=== PATIENT | female | born 1970 | race Caucasian/White ===

== ENCOUNTER 2019-11-06 11:30 | Inpatient (IN) | payer MEDICARE, MEDICAID, SELFPAY ==
[2019-11-06] VITALS (9 sets, daily range): BP systolic 103–140; BP diastolic 46–87; PULSE 60–94; RESP 11–18; TEMP 36.2–36.6; O2SAT 94–100; BMI 24.4
--- NOTE | ~2019-11-06 | CT_ITS ---
EXAMINATION: CT brain wo con DATE: 11/06/2019 12:22 INDICATION: Syncope. TECHNIQUE: Computed tomography (CT) of the head was performed without intravenous contrast. The mA wa s adjusted according to patient size. Iterative reconstruction technique was employed. The dose-lengt h product was 605.33 mGy-cm. COMPARISON: None FINDINGS: There is a large distribution of encephalomalacia in right temporal lobe and right insula. There is asymmetric volume loss of right frontal lobe. No pleural effusion or pneumothorax. There is ex vacuo dilatation of right lateral ventricle. The paranasal sinuses are clear. The orbits are michael l. The mastoid air cells are normal. There are changes of right-sided craniotomy. IMPRESSION: 1. Chronic encephalomalacia involving right temporal lobe and right insula. Reviewed, dictated and finalized at location A.
--- NOTE | ~2019-11-06 | XR_ITS ---
EXAMINATION: XR wrist LT min 3V DATE: 11/06/2019 12:42 INDICATION: Left wrist pain. Fall. TECHNIQUE: 4 views of left wrist were obtained. COMPARISON: None. FINDINGS: Bone alignment is normal. No fracture. Joint spaces are well maintained. IMPRESSION: 1. Normal left wrist. Reviewed, dictated and finalized at location A. IMPRESSION: 1. Normal left wrist.
--- NOTE | ~2019-11-06 | CT_ITS ---
EXAMINATION: CTA chest PE protocol EXAM DATE: 11/06/2019 18:21 INDICATION: Shortness of breath. Syncope. TECHNIQUE: Spiral CTA of the chest (pulmonary arteries) was performed with 100 cc Omnipaque 350 intr avenous contrast injection. Images were acquired during the pulmonary arterial phase. Coronal maxi mum intensity projection 3D-reconstructions were created by the technologist on dedicated workstation . Axial, coronal and sagittal reformatted images were reviewed. The dose-length product (DLP) for t his examination was 169.37 mGy-cm. The exposure was tailored according to patient size (auto mA exp osure control), and iterative reconstruction (ASIR) was used as additional dose reduction technique. There is no prior study for comparison. FINDINGS: Pulmonary arteries are well opacified and without intraluminal filling defects. No thora cic aortic dissection. Some subpleural banding, atelectasis posteriorly. There are no pleural or pe ricardial effusions. Tracheobronchial tree is patent. There is no mediastinal, hilar or axillary lymphadenopathy. There is no pneumothorax. Heart normal in size. No evidence of coronary arteri al calcification. Upper abdomen is unremarkable. The bones are unremarkable. IMPRESSION: 1. No pulmonary emboli or acute findings. 2. Dependent subsegmental atelectasis. Reviewed, dictated and finalized at location A.
--- NOTE | ~2019-11-06 | CT_ITS ---
EXAMINATION: CT thoracic lumbar wo con DATE: 11/06/2019 12:22 INDICATION: Back pain. Syncope. TECHNIQUE: Computed tomography (CT) of the thoracic and lumbar spine was performed without intravenou s contrast. Automated exposure control and iterative reconstruction technique were employed. The dose -length product was 1575.71 mGy-cm. COMPARISON: None FINDINGS: CT THORACIC SPINE: Bone alignment is normal. Vertebral body heights are normal. There is mildly decre ased disc height from T2-T3 through T9-T10. There are endplate osteophytes at most levels. There is m ultilevel mild to moderate facet joint osteoarthritis. On the right, there is moderate neural foramin al stenosis at T1-T2 and mild neural foraminal stenosis at T4-T5 and T5-T6. On the left, there is mil d neural foraminal stenosis at T3-T4. No central canal stenosis. CT LUMBAR SPINE: Bone alignment is normal. Vertebral body heights are normal. There is severely decre ased disc height at L5-S1. The following disc levels are specifically discussed: L1-L2: The disc does not extend beyond the endplate margin. There is mild right and moderate left fac et joint osteoarthritis. There is no neural foraminal stenosis. There is no central canal stenosis. L2-L3: The disc is bulging. There is mild right and moderate left facet joint osteoarthritis. There i s mild right neural foraminal stenosis. There is no central canal stenosis. L3-L4: The disc is bulging. There is moderate bilateral facet joint osteoarthritis. There is mild zulema ateral neural foraminal stenosis. There is no central canal stenosis. L4-L5: The disc is bulging. There is mild right and moderate left facet joint osteoarthritis. There i s mild bilateral neural foraminal stenosis. There is mild central canal stenosis. L5-S1: The disc is bulging. There is moderate bilateral facet joint osteoarthritis. There is moderate bilateral neural foraminal stenosis. There is mild central canal stenosis. IMPRESSION: 1. Severe lower lumbar spondylosis. 2. Mild thoracic spondylosis. Reviewed, dictated and finalized at location A.
--- NOTE | ~2019-11-06 | XR_ITS ---
EXAMINATION: XR shoulder LT min 2V DATE: 11/06/2019 12:42 INDICATION: Left shoulder pain. TECHNIQUE: 4 views of left shoulder were obtained. COMPARISON: None. FINDINGS: Bone alignment is normal. No fracture. There is mild osteoarthritis of acromioclavicular bobby int. Glenohumeral joint is normal. IMPRESSION: 1. Mild left acromioclavicular joint osteoarthritis. Reviewed, dictated and finalized at location A.
--- NOTE | ~2019-11-06 | US_ITS ---
EXAMINATION: US carotid duplex BI DATE: 11/07/2019 15:55 INDICATION: Transient alteration of awareness TECHNIQUE: Grayscale, color Doppler, and pulsed Doppler images of the cervical carotid arteries were obtained. The degree of vessel stenosis is placed in one of the following categories: normal, <50%, 5 0-69%, >=70% but less than near-occlusion, near-occlusion, or total occlusion. Note that percent sten osis relative to normal distal artery lumen diameter is indirectly measured from velocity measurement s as described by Javon, et al. Radiology 2003; 229:340-346. COMPARISON: None. FINDINGS: RIGHT: The right common carotid artery (CCA) peak systolic velocity (PSV) is 58 cm/s. The right internal car otid artery (ICA) PSV is 78 cm/s. The right ICA end-diastolic velocity (EDV) is 37 cm/s. The right IC A/CCA PSV ratio is 1.3. Grayscale and color Doppler images yield an estimate of less than 50%/greater than or equal to 50% diameter reduction from plaque in the ICA. The external carotid artery (ECA) PS V is 72 cm/s. There is antegrade flow in the right vertebral artery. LEFT: The left CCA PSV is 83 cm/s. The left ICA PSV is 89 cm/s. The left ICA EDV is 38 cm/s. The left ICA/C CA PSV ratio is 1.0. Grayscale and color Doppler images yield an estimate of less than 50%/greater th an or equal to 50% diameter reduction from plaque in the ICA. The ECA PSV is 65 cm/s. There is antegr goyo flow in the left vertebral artery. IMPRESSION: 1. <50% stenosis in the right internal carotid artery. 2. <50% stenosis in the left internal carotid artery. Reviewed, dictated and finalized at location A.
--- NOTE | ~2019-11-06 | CT_ITS ---
EXAMINATION: CT cervical spine wo con DATE: 11/06/2019 12:22 INDICATION: Neck pain. TECHNIQUE: Computed tomography (CT) of the cervical spine was performed without intravenous contrast. Automated exposure control and iterative reconstruction technique were employed. The dose-length pro duct was 148.03 mGy-cm. COMPARISON: None FINDINGS: There is 7 degrees levocurvature of cervical spine. Vertebral body heights are normal. Ther e is mildly decreased disc height at C4-C5 and C6-C7 and moderately decreased disc height at C5-C6. T he following disc levels are specifically discussed: C2-C3: There is mild bilateral uncovertebral joint osteoarthritis. There is mild right and severe lef t facet joint osteoarthritis. There is mild left neural foraminal stenosis. There is no central canal stenosis. C3-C4: There is mild bilateral uncovertebral joint osteoarthritis. There is severe right and mild lef t facet joint osteoarthritis. There is mild right neural foraminal stenosis. There is no central tracey l stenosis. C4-C5: There is mild bilateral uncovertebral joint osteoarthritis. There is no facet joint osteoarthr itis. There is no neural foraminal stenosis. There is no central canal stenosis. C5-C6: There is severe bilateral uncovertebral joint osteoarthritis. There is no facet joint osteoart hritis. There is mild right and moderate left neural foraminal stenosis. There is mild central canal stenosis. C6-C7: There is mild bilateral uncovertebral joint osteoarthritis. There is no facet joint osteoarthr itis. There is no neural foraminal stenosis. There is mild central canal stenosis. C7-T1: There is no uncovertebral joint osteoarthritis. There is severe bilateral facet joint osteoart hritis. There is mild bilateral neural foraminal stenosis. There is no central canal stenosis. IMPRESSION: 1. Moderate cervical spondylosis. Reviewed, dictated and finalized at location A.
--- NOTE | ~2019-11-06 | XR_ITS ---
EXAMINATION: XR hip BI 2V w AP pelvis DATE: 11/06/2019 12:42 INDICATION: Hip pain. Fall. TECHNIQUE: An anteroposterior view of the pelvis and 2 views of each hip were obtained. COMPARISON: None. FINDINGS: There is lumbar levocurvature. There is severe lower lumbar spondylosis. No fracture. There is mild osteoarthritis of the hips. IMPRESSION: 1. Mild osteoarthritis of the hips. Reviewed, dictated and finalized at location A.
--- NOTE | ~2019-11-06 | XR_ITS ---
EXAMINATION: XR elbow LT min 3V DATE: 11/06/2019 12:42 INDICATION: Left elbow pain. Fall. TECHNIQUE: 4 views of left elbow were obtained. COMPARISON: None. FINDINGS: Bone alignment is normal. No fracture. There is mild elbow joint osteoarthritis. No elbow j oint effusion. IMPRESSION: 1. Mild left elbow joint osteoarthritis. Reviewed, dictated and finalized at location A.
--- NOTE | ~2019-11-06 | XR_ITS ---
XR chest 2V DATE: 11/06/2019 12:42 INDICATION: Fall. Pain. Shortness of breath. TECHNIQUE: AP and lateral views COMPARISON: None FINDINGS: Normal heart size. No hilar or mediastinal enlargement. No pulmonary infiltrate or consolid ation, pleural effusion or pulmonary vascular congestion or pneumothorax. IMPRESSION: No active cardiopulmonary disease Reviewed, dictated and finalized at location A.
--- NOTE | 2019-11-06 11:52 | ECG_ITS ---
Measurements Intervals [place] Rate: 74 P: 74 TN: 151 QRS: -12 QRSD: 98 T: 29 QT: 401 QTc: 446 Interpretive Statements SINUS RHYTHM BORDERLINE T WAVE ABNORMALITY- DIFFUSE LEADS BASELINE ARTIFACT- I, III, AVL, V2 BORDERLINE ECG Electronically Signed On 11-06-2019 13:19:30 CDT by Daniel Mercado D.O.
--- NOTE | 2019-11-06 11:56 | ED.FALL ---
HPI - Fall General Chief Complaint: Fall <Mary Antonio PA-C - Last Filed: 11/06/19 19:15> Stated Complaint: Fall, L shoulder Pain <CONSTANTINE Mckeon Last Filed: 11/06/19 19:15> Source: patient <Mary CONSTANTINE Dupree Last Filed: 11/06/19 19:15> Mode of arrival: EMS <CONSTANTINE Mckeon Last Filed: 11/06/19 19:15> Limitations: other (poor historian) <CONSTANTINE Mckeon Last Filed: 11/06/19 19:15> History of Present Illness HPI Narrative: This is a 49 year old female that presents to the ER for multiple falls over the last month. Reports a history of seizures and a stroke in the past. Reports she has had more trouble with balance the last month. Reports multiple falls for which she has been seen at [facility]. Reports her neurologist is Dr. Vaughn. Reports syncope this morning. Reports she got up in the morning to take her medications. Reports she felt a seizure coming on. Reports laying on the cough while she was having a seizure. Reports she is aware during her seizures. Reports after she got back up and was walking and felt short of breath and had palpitations and chest tightness. Reports she suddenly passed out. Reports since she has had back pain and left arm pain. Reports dysuria. Denies vision changes, vomiting, or new numbness or weakness. <Mary Antonio PA-C - Last Filed: 11/06/19 19:15> Related Data Home Medications: Home Medications Medication Instructions Recorded Confirmed divalproex 1,000 PO 11/06/19 levetiracetam [Keppra] 1,000 mg PO BID 11/06/19 11/06/19 meclizine 25 mg PO BID 11/06/19 11/06/19 <CONSTANTINE Mckeon Last Filed: 11/06/19 19:15> Allergies/Adverse Reactions: Allergies Allergy/AdvReac Type Severity Reaction Status Date / Time Barbiturates Allergy Unknown ? Verified 11/06/19 11:57 divalproex sodium Allergy Unknown BONE Verified 11/06/19 11:57 MARROW CHANGES Hydantoins Allergy Unknown WBC Verified 11/06/19 11:57 DROPPED OUT meperidine Allergy Unknown DIZZY Verified 11/06/19 11:57 Penicillins Allergy Unknown ? Verified 11/06/19 11:57 phenytoin Allergy Unknown ???: Verified 11/06/19 11:57 ANTICONVULS Allergy Unknown Unknown Uncoded 11/06/19 11:57 ANTIHISTAMINE Allergy Unknown Unknown Uncoded 11/06/19 11:57 nfa Allergy Unknown Unknown Uncoded 11/06/19 11:57 SALICYLATES Allergy Unknown TOLD NOT Uncoded 11/06/19 11:57 TO TAKE WITH SEIZURE MEDS <Mary Antonio PA-C - Last Filed: 11/06/19 19:15> Review of Systems Review of Systems: Narrative: CONSTITUTIONAL: Reports fever EYES: Denies visual changes ENT: Denies rhinorrhea, congestion, sore throat CARDIOVASCULAR: Reports chest pain, palpitations. Denies edema. RESPIRATORY: Reports dyspnea. Denies cough GASTROINTESTINAL: Reports nausea. Denies abdominal pain, vomiting, or diarrhea. GENITOURINARY: Reports dysuria. Denies hematuria. MUSCULOSKELETAL: Reports back pain, joint pain, and myalgia. NEUROLOGIC: Denies new numbness, or weakness. <Mary Antonio PA-C - Last Filed: 11/06/19 19:15> All systems reviewed & are unremarkable except as noted in HPI and below <Mary Antonio PA-C - Last Filed: 11/06/19 19:15> [facility] Past Medical History Medical History: Medical History (Updated 11/06/19 @ 19:12 by Mary Antonio PA-C) History of CVA (cerebrovascular accident) History of seizures <Mary Antonio PA-C - Last Filed: 11/06/19 19:15> Surgical History Surgical History: Surgical History (Updated 11/06/19 @ 12:00 by Mary Antonio PA-C) History of colonoscopy History of dilation and curettage History of tubal ligation <Mary Antonio PA-C - Last Filed: 11/06/19 19:15> Social History Social History: Social History Gender identity (if verbalized by the patient): Female <Mary Antonio PA-C - Last Filed: 11/06/19 19:15> Exam Narrative: Exam Narrative: GENERAL: Well-appearing, well
[2019-11-06 13:18] LABS: Basophils Percent Auto 0.6 % (0.2-1.2); Eosinophils Percent Auto 0.6 % (0-4.4); Hematocrit 44.7 % (37.0-47.0); Hemoglobin 14.9 g/dL (12.0-15.0); Immature Granulocyte Absolute 0.02 K/mm3 (0.00-0.031); Immature Granulocyte Percent A 0.4 % (0-0.5); Lymphocytes Absolute Auto 1.58 K/mm3 (0.9-3.2); Lymphocytes Percent Auto 31.5 % (18.3-44.2); Mean Corpuscular HGB Conc 33.3 g/dl (32-36); Mean Corpuscular Volume 96.1 fl (80-100); Monocytes Absolute Auto 0.4 K/mm3 (0.1-0.6); Monocytes Percent Auto 7.2 % (2.6-8.5); Neutrophils Percent Auto 59.7 % (45.5-73.1); Platelet Count Result 143 k/mm3 (150-375); Red Blood Count 4.65 M/mm3 (4.2-5.4); Red Cell Distribution Width 12.8 % (11.5-14.5)
[2019-11-06 13:29] LABS: Alanine Aminotransferase 16 U/L (4-35); Albumin Level 4.3 g/dL (3.5-5.1); Alkaline Phosphatase 58 U/L (38-126); Aspartate Amino Transferase 27 U/L (14-36); Bilirubin,Total 0.3 mg/dL (0.2-1.3); Blood Urea Nitrogen 12 mg/dL (7-17); Calcium 9.3 mg/dL (8.4-10.2); Carbon Dioxide 32 mmol/L (22-30); Chloride 102 mmol/L (98-107); Estimated CRCL calculation 77 ml/min; Estimated Glomerular Filt Rate > 60; Glucose 89 mg/dL (65-105); Lipase 82 U/L (23-300); Sodium 140 mmol/L (137-145)
[2019-11-06 13:40] LABS: Add Urine Microscopic? YES; Appearance Urine Clear (Clear); Bilirubin Urine Negative (Negative); Blood Urine 1+ (Negative); Color Urine Straw (Yellow); Glucose Urine UA Negative (Negative); Ketones Urine Negative (Negative); Leukocyte Esterase Ur Negative LEU/UL (Negative); Nitrate Urine Negative (Negative); Protein Urine Negative (Negative); RBC Urine 0-2 /hpf (0-2); Specific Grav Ur 1.008 (1.001-1.035); Urobilinogen Urine Negative mg/dL (<2.0); WBC Urine 0-3 /hpf
[2019-11-06 13:42] LABS: NT Pro B Type Natriuretic Pept 71 PG/ML (5-100); Troponin I < 0.012 ng/mL (0.000-0.034)
[2019-11-06] MEDS: DIVALPROEX SODIUM 250 MG TABEC 1000 MG PO (15:45)
[2019-11-06] MEDS: MECLIZINE HCL 25 MG TABLET PO (16:16)
--- NOTE | 2019-11-06 20:00 | ADMGEN ---
This patient, Estefania Benito, was admitted to Medical Room 341-01. Patient/family oriented to hospital policies and general routines including ID bracelet, bed and alarms, visiting hours, pain management, procedures, bathroom and other care routines, personal items, smoking policy, room service/diet, and visiting hours. Valuables list has been completed. Information on how to activate the Rapid Response Team has been discussed. Patient/Family are encouraged to report perceived risks to care and to ask questions if they do not understand what they are told or what they should do.
[2019-11-06 20:54] LABS: D Dimer 0.27 ug/mL (<0.48)
[2019-11-07] VITALS (11 sets, daily range): BP systolic 94–104; BP diastolic 45–56; PULSE 64–85; RESP 16–18; TEMP 36.1–36.3; O2SAT 97–100; BMI 24.4
--- NOTE | 2019-11-07 | ECHO_ITS ---
Patient Info Name: Estefania Benito Age: 49 years : 1970 Gender: Female Ht: 69 in Wt: 165 lbs BSA: 1.92 m2 HR: 85 bpm BP: 104 / 45 mmHg Technical Quality: Good Exam Date: 11/07/2019 10:39 AM Exam Location: [facility] Pulmonary Exam Room: [facility] Patient Status: Inpatient Admit Date: 11/06/2019 Staff Ordering Physician: Lu Hardwick PA-C Medical Social Consultant: Latoya Wadsworth RDCS Attending Provider: Lu Hardwick PA-C Referring Physician: Ronen MASON; Exam Type: CA echo doppler w bubble study Study Info Indications - cva sob chest tightness syncope Complete two-dimensional, color flow and Doppler transthoracic echocardiogram is performed with agitated saline. Contrast/Agitated Saline Contrast/Ag. Saline: Agitated Saline Amount: 20.00 ml Administered By: Johnnie Bell, RN Summary 1. Left ventricular chamber dimension is normal. 2. Left ventricular systolic function is normal, estimated at 60-65%. 3. The left ventricular diastolic function is grade I diastolic dysfunction. 4. E/e' 5 is not elevated. 5. Agitated saline injection opacified right sided cardiac chambers with and without valsalva maneuver with few bubbles seen crossing into left sided cardiac chambers which suggest patent foramen ovale or atrial septal defect. 6. There is trace tricuspid valve regurgitation. 7. No pulmonary hypertension, estimated pulmonary arterial systolic pressure is 28 mmHg. Left Ventricle Left ventricular chamber dimension is normal. Left ventricular systolic function is normal, estimated at 60-65%. The left ventricular diastolic function is grade I diastolic dysfunction. E/e' 5 is not elevated. Right Ventricle Right ventricular chamber dimension is normal. Right ventricular systolic function is normal. Left Atria Left atrial chamber dimension is normal. Right Atria Right atrial chamber dimension is normal. Atrial Septum Agitated saline injection opacified right sided cardiac chambers with and without valsalva maneuver with few bubbles seen crossing into left sided cardiac chambers which suggest patent foramen ovale or atrial septal defect. Aortic Valve The aortic valve is trileaflet. There is no aortic valve stenosis. There is no aortic valve regurgitation. Pulmonic Valve There is no pulmonic regurgitation. Mitral Valve There is no mitral valve stenosis. There is no mitral valve regurgitation. Tricuspid Valve There is trace tricuspid valve regurgitation. No pulmonary hypertension, estimated pulmonary arterial systolic pressure is 28 mmHg. Pericardium/Pleural There is no pericardial effusion. Inferior Vena Cava Normal inferior vena cava with >50% collapse upon inspiration consistent with normal right atrial pressure, 5 mmHg. Aorta The aortic root size at the sinus of Valsalva is normal. Left Ventricular Outflow Tract Name Value Normal LVOT 2D LVOT Diameter 2.0 cm LVOT Doppler LVOT Peak Gradient 4 mmHg LVOT Mean Gradient 2 mmHg LVOT VTI
[2019-11-07] MEDS: LACOSAMIDE 100 MG TABLET PO (06:39)
[2019-11-07] MEDS: LACOSAMIDE 200 MG TABLET PO (06:39)
[2019-11-07] MEDS: lamoTRIgine 100 MG TABLET PO (06:47)
[2019-11-07] MEDS: levETIRAcetam 500 MG TABLET 1000 MG PO (06:47)
[2019-11-07] MEDS: MONTELUKAST SODIUM 10 MG TABLET PO (08:53)
[2019-11-07] MEDS: MECLIZINE HCL 25 MG TABLET PO ×3 (08:53→16:55)
[2019-11-07] MEDS: DIVALPROEX SODIUM 250 MG TABEC 1000 MG PO ×3 (11:40→20:16)
--- NOTE | 2019-11-07 13:03 | PM.IMHP ---
H&P: HPI History of Present Illness Chief complaint: Syncope Narrative: Estefania Benito is a 49 year old female with a history of traumatic brain injury, right temporal lobectomy status post CVA causing left-sided residual weakness post-op, seizures, who presented to the emergency department by EMS after having a seizure. The patient reports she was at home by herself in the morning on 11/06/2019 feeling well and walked into the kitchen to feed her cat. When she got into the kitchen she began having a headache, feeling nauseous, which she states is similar to her pre-seizure symptoms. She went into the living room and laid on her couch and states that she had a deep seizure. She states she is aware when she is having a seizure but she is not in control and she ?becomes rigid . She believes that she was out for about 5 minutes which is usually about how long her bad seizures are. When she finally came to she was laying on her floor and had landed on her left side. She denies any tongue biting but states when she woke she had urinated on her couch. It took her a while to completely come to and be able to call her sister and then hit her Life Alert button. To the ER her temperature was 97.9?, blood pressure 140/60, heart rate 94, respiratory rate 16, oxygen saturation 100% on room air. Labs shows normal CBC with differential, normal CMP other than slightly elevated serum bicarb at 32. Normal troponin. Normal D-dimer. Normal urinalysis showing no infection. CT head showed Chronic encephalomalacia involving right temporal lobe and right insula. CT cervical, thoracic, lumbar spine showed No acute abnormality. X-rays of left elbow, hip and pelvis, left wrist, show mild osteoarthritis. CTA chest shows no PE or acute findings. She was admitted into the hospital for further evaluation, neurology consult, and further monitoring of seizures and workup for syncopal episodes. She also reports having multiple falls over the last month, along with episodes of syncope. She states her last syncopal episode was about 1 week ago. She does have intermittent dizziness and vertigo for which she is unable to bend over or turn her head too fast because it causes her symptoms to occur. She denies any palpitations, chest pain, shortness of breath, fevers, chills, vomiting, abdominal pain, leg swelling, calf pain, focal weakness, confusion, slurred speech, dysuria, frequent urination, or any other concerning symptoms at this time. Code status: The patient would like to be a do not intubate. POA: Sister, Shahnaz Benito PCP: Dr. Medina Review of Systems Review of Systems: All systems reviewed & are unremarkable except as noted in HPI and below PMFSH Past Medical History Medical History (Updated 11/07/19 @ 18:13 by Lu Hardwick PA-C) Anxiety History of CVA (cerebrovascular accident) Status post lobectomy of her right temporal lobe History of seizures From TBI and lobectomy a brain History of traumatic brain injury At 6 years old Migraine Peripheral vision loss Surgical History Surgical History History of colonoscopy History of dilation and curettage History of skin graft Left hand History of total hysterectomy History of tubal ligation Status post lobectomy of brain Right temporal lobectomy Family History Family History Mother Acute myocardial infarction Grandparent Acute myocardial infarction Other Congestive heart failure Hypertension Ovarian cancer Social History Social History Social History: She walks using a rolling walker Smoking status: Never smoker Second hand tobacco smoke exposure: Yes Alcohol intake: never Substance use: never Substance use type: does not use Additional living arrangements comments: The patient lives alone in
[2019-11-07] MEDS: ACETAMINOPHEN 325 MG TABLET 650 MG PO (15:05)
--- NOTE | 2019-11-07 18:30 | CONS_ITS ---
DATE OF CONSULTATION: 11/06/2019 HISTORY OF PRESENT ILLNESS: A 49-year-old has been admitted to [facility] through the emergency room where she came with the complaints of multiple falls over the last several weeks. The patient carries the diagnosis of intractable epilepsy, has undergone the craniotomy and lobectomy for the intractable epilepsy. Reportedly, when she got up in the morning, she felt the seizure coming on. She is lying on the couch, having seizure. Most of the time, she is aware of being having seizure, a small one. MEDICATIONS: She has been takin. Depakote 1000 mg. 2. Levetiracetam 1000 mg twice a day. 3. Meclizine 25 mg b.i.d. ALLERGIES: SHE IS ALLERGIC TO HYDANTOIN, MEPERIDINE, PENICILLIN, PHENYTOIN, ANTIHISTAMINE, AND SALICYLATES. ? She gave no history of having fever, chest pain, palpitation, nausea, vomiting, and diarrhea. In the past, she has ongoing history of cerebrovascular accident with intractable epilepsy, has undergone colonoscopy, D and C, and tubal ligation. PHYSICAL EXAMINATION: VITAL SIGNS: Examination at this stage reveals her to be awake, alert, cooperative, complaining of generalized weakness, not feeling well. HEENT: Head normocephalic with no cranial bruits. Ear, nose, throat examination normal. NECK: Supple with no cervical bruits. No thyromegaly. No lymphadenopathy. HEART: Regular. LUNGS: Clear. ABDOMEN: Soft. NEUROLOGICAL: Examination revealed her to be awake, alert. Pupils round, regular. Henning of vision full. Extraocular movements full. Face symmetrical. Tongue midline. Motor examination revealed her to have hemiparesis with hyperreflexia, upgoing plantar responses. LABORATORY DATA: Evaluation up until now revealed her CBC without leukocytosis, normal basic metabolic panel, normal hepatic enzymes. Troponin less than 0.012. Total protein 8 with albumin 4.3, lipase 82. UA negative. CBC without leukocytosis. Hemoglobin 14.9, platelet count 143. DIAGNOSTIC STUDIES: Initial CT scan of the head in the emergency room documented right temporal lobe and right insular encephalomalacia related to her previous surgery during her childhood for the intractable epilepsy. Cervical spine CT scans compatible with cervical spondylosis. Thoracic and lumbar spine CT with severe lower lumbar spondylosis, mild thoracic spondylosis. X-ray chest is negative. X-ray of the elbow with mild left elbow joint osteoarthritis. Hip and pelvic x-rays again with mild osteoarthritis of the hip. Wrist x-ray normal. Shoulder x-ray, mild acromioclavicular joint osteoarthritis. Chest x-ray with the dependence of subsegmental atelectasis. At this stage, she is receiving multiple medications, which include tranxene 7.5 b.i.d., valproic acid 1000 mg t.i.d., Lacosamide that is Vimpat 100 mg twice a day and 200 mg b.i.d. also, that is total of 300 b.i.d., lamotrigine 100 b.i.d., Levetiracetam 1000 mg b.i.d. IMPRESSION AND PLAN: Intractable epilepsy for which the patient has undergone the cranial surgery also during her childhood, but she continues to have recurrent seizure in spite of taking multiple medications. At this stage, medication will be left as such and further recommendations made accordingly. JYOTI CASTRO M.D. INTELLIGENCE SPECIALIST INTELLIGENCE SPECIALIST D I MT: Jordan MASCORRO
--- NOTE | 2019-11-07 19:55 | PC.NURSE ---
completed by Janette Black.
--- NOTE | 2019-11-07 19:57 | PC.NURSE ---
completed by Janette Black.
[2019-11-08] VITALS (9 sets, daily range): BP systolic 93–117; BP diastolic 51–96; PULSE 64–83; RESP 16; TEMP 35.9–36.6; O2SAT 98–99
[2019-11-08] MEDS: levETIRAcetam 500 MG TABLET 1000 MG PO ×3 (00:30→23:58)
[2019-11-08] MEDS: lamoTRIgine 100 MG TABLET PO ×4 (00:30→23:59)
[2019-11-08] MEDS: LACOSAMIDE 100 MG TABLET 300 MG PO ×3 (00:31→23:58)
[2019-11-08] MEDS: MECLIZINE HCL 25 MG TABLET PO ×3 (09:16→17:04)
[2019-11-08] MEDS: MONTELUKAST SODIUM 10 MG TABLET PO (09:16)
--- NOTE | 2019-11-08 10:53 | PM.IMPN ---
Progress Note: A&P Assessment and Plan (1) Seizure: Code(s): R56.9 - Unspecified convulsions Status: Acute Assessment and Plan: The patient reports having a seizure prior to arrival at home. The patient's neurologist is Dr. Vaughn who was consulted on the patient's case and did not want to make any changes to her medications yesterday. today the patient states she had a seizure. I called the neurologist who recommended increasing her Lamictal to 100 mg t.i.d. at midnight, 6:00 a.m. and noon. Will monitor the patient overnight to see if she has any other seizures and would need any other adjustments. The ER ordered an EEG on arrival and still has not been completed. Will call and see when the EEG will be completed. Patient has seizure precautions on at this time. Will continue monitoring the patient's symptoms, neurologist recommendations are greatly appreciated. (2) Syncope: Qualifiers: Syncope type: unspecified Qualified Code(s): R55 - Syncope and collapse Code(s): R55 - Syncope and collapse Status: Acute Assessment and Plan: Patient reports history of multiple syncopal episodes over the last month with no associated symptoms related. Echocardiogram showed normal EF at 60-65%, left ventricular distal it dysfunction grade 1. It does show that she has an ASD or a PFT. Carotid Doppler ultrasounds showed less than 50% bilaterally. CTA of chest was ordered which showed no acute pulmonary embolism as a cause. Patient's telemetry shows normal sinus rhythm with a heart rate of 72 beats per minute, no acute abnormality noted just a few alarms for artifact. Orthostatics on arrival: Laying 103/75, sitting 111/79, Standing 108/87. Negative for any orthostatic hypotension. Will continue monitoring the patient's symptoms but at this time everything is coming back normal. Will recheck orthostatics today. (3) Gait disturbance, post-stroke: Code(s): I69.398 - Other sequelae of cerebral infarction; R26.9 - Unspecified abnormalities of gait and mobility Status: Acute Assessment and Plan: Patient reports multiple falls over the last month. She does live alone but only has a caregiver, Sunday through Sunday for only 3-1/2 hours. Will order physical and occupational therapy for evaluation prior to discharge to see what they recommend and if she would need home health verses skilled rehab facility. (4) Anxiety: Code(s): F41.9 - Anxiety disorder, unspecified Status: Acute Assessment and Plan: Will continue her on her home medications. Time Spent With Patient Time with patient: 25 - 35 minutes Subjective Date/time seen: 11/08/19 10:53 Interval history: Date Of service 11/08/2019: the patient reports having a seizure this morning. she felt the symptoms coming on with right-sided facial tingling, then felt her body become more stiff and rigid from her neck to her lower extremities. she did not lose consciousness which she states is normal for most of her seizures. She was not given any Ativan during this time since she was awake and alert without any issues. Then the seizure past and now she is just complaining of a right-sided headache at this time. She denies any chest pain, shortness of breath, cough, fever, chills, nausea, vomiting, abdominal pain, leg swelling, calf pain, urinary symptoms, diarrhea, constipation or any other symptoms at this time. Review of Systems Review of Systems: All systems reviewed & are unremarkable except as noted in HPI and below Exam Narrative: Exam Narrative: General: 49-year-old woman sitting up in bed taking a nap. Appears comfortable. In no acute distress. Head: Atraumatic, normocephalic Skin: No signs of acute trauma,
[2019-11-08] MEDS: DIVALPROEX SODIUM 250 MG TABEC 1000 MG PO ×3 (14:24→20:59)
--- NOTE | 2019-11-08 16:54 | WPDNEUROPN ---
Progress Note: A&P Assessment and Plan (1) History of seizures: Code(s): Z87.898 - Personal history of other specified conditions Status: Acute (2) Seizure: Code(s): R56.9 - Unspecified convulsions Status: Acute (3) Anxiety: Code(s): F41.9 - Anxiety disorder, unspecified Status: Acute (4) Syncope: Qualifiers: Syncope type: unspecified Qualified Code(s): R55 - Syncope and collapse Code(s): R55 - Syncope and collapse Status: Acute (5) Gait disturbance, post-stroke: Code(s): I69.398 - Other sequelae of cerebral infarction; R26.9 - Unspecified abnormalities of gait and mobility Status: Acute (6) Spastic hemiparesis of left nondominant side: Code(s): G81.14 - Spastic hemiplegia affecting left nondominant side Status: Acute Additional Plan lamotrigine has already been increased rest of the management as before the patient can be discharged tomorrow if everything goes well with follow-up with Dr. Galdamez Review of Systems Review of Systems: All systems reviewed & are unremarkable except as noted in HPI and below Exam Const: General: comfortable and no acute distress HENMT: General nose exam: Normal nares present Mouth: Yes moist mucous membranes Other: scars of the right temporal lobectomy healed nicely Eyes: General: appearance normal, both eyes and all related structures Neck: Neck: supple and no JVD Resp: Effort & Inspection: normal respiratory effort Auscultation: clear to auscultation bilaterally Cardio: Rate: regular rate Rhythm: regular rhythm GI: Auscultation: normal bowel sounds Skin: General skin exam: normal color Neuro: Other: patient is awake alert well oriented time place and person has normal speech language functions normal cranial examination is stable left-sided hemiparesis primarily affecting the lower extremity more so than the upper extremity with spasticity and partial footdrop on the side which is all long-standing and stable Extrem: General: normal to inspection Psych: Mental Status: mental status grossly normal Objective Data Vital Signs Vital Signs: Vital Signs - 24 hr 11/07/19 19:55 11/07/19 20:00 11/08/19 00:00 Temperature 36.1 C L Pulse Rate 65 64 70 Respiratory Rate 16 Blood Pressure 98/56 L Pulse Oximetry 98 11/08/19 04:22 11/08/19 05:04 11/08/19 08:00 Temperature 36.4 C Pulse Rate 67 64 70 Respiratory Rate 16 Blood Pressure 93/51 L Pulse Oximetry 98 11/08/19 12:00 11/08/19 14:00 Temperature 35.9 C L Pulse Rate 82 77 Respiratory Rate 16 Blood Pressure 117/96 H Pulse Oximetry 99 Intake/Output Intake/Output: Intake & Output 11/05/19 11/06/19 11/07/19 11/08/19 23:59 23:59 23:59 23:59 Intake Total 1720 450 Output Total 400 450 550 Balance -400 1270 -100 Meds/Results Medications: Active Medications Generic Name Dose Route Start Last Admin Trade Name Freq PRN Reason Stop Dose Admin Acetaminophen 650 mg 11/07/19 14:29 11/07/19 15:05 Tylenol Tablet PO 650 mg Q4H PRN Administration Headache Clorazepate Dipotassium 7.5 mg 11/07/19 19:00 11/08/19 06:40 Tranxene PO 7.5 mg 0600,1900 BEATRIS Administration Divalproex Sodium 1,000 mg 11/07/19 12:00 11/08/19 14:24 Depakote Ec Tab PO 1,000 mg 1200,1600,2000 BEATRIS Administration Lacosamide 300 mg 11/08/19 00:00 11/08/19 06:40 Vimpat PO 300 mg 0000,0600 BEATRIS Administration Lamotrigine 100 mg 11/09/19 00:00 Lamictal PO 0000,0600,1200 BEATRIS Levetiracetam 1,000 mg 11/07/19 06:25 11/08/19 06:40 Keppra Tablet PO 1,000 mg 0000,0600 BEATRIS Administration Meclizine HCl 25 mg 11/07/19 08:00 11/08/19 14:24 Antivert PO 25 mg 0800,1200,1600 BEATRIS Administration Montelukast Sodium 10 mg 11/07/19 09:00 11/08/19 09:16 Singulair PO 10 mg DAILY BEATRIS Administration Polyethylene Glycol 17 gm 11/08/19 10:55 Miralax
[2019-11-09] VITALS (7 sets, daily range): BP systolic 91–116; BP diastolic 53–67; PULSE 69–81; RESP 12–16; TEMP 36.2–36.7; O2SAT 97–100
[2019-11-09] MEDS: lamoTRIgine 100 MG TABLET PO ×3 (06:32→23:11)
[2019-11-09] MEDS: levETIRAcetam 500 MG TABLET 1000 MG PO ×2 (06:32→23:10)
[2019-11-09] MEDS: LACOSAMIDE 100 MG TABLET 300 MG PO ×2 (06:33→23:10)
[2019-11-09] MEDS: MECLIZINE HCL 25 MG TABLET PO ×3 (08:13→16:01)
[2019-11-09] MEDS: MONTELUKAST SODIUM 10 MG TABLET PO (08:13)
[2019-11-09] MEDS: DIVALPROEX SODIUM 250 MG TABEC 1000 MG PO ×3 (11:47→20:20)
--- NOTE | 2019-11-09 15:58 | PM.IMPN ---
Progress Note: A&P Assessment and Plan (1) Seizure: Code(s): R56.9 - Unspecified convulsions Status: Acute Assessment and Plan: The patient reports having a seizure prior to arrival at home. The patient's neurologist is Dr. Vaughn who was consulted on the patient's case and did not want to make any changes to her medications initially on arrival. 11/07-the patient reported having a bad seizure and Dr. Long increased her Lamictal to 100 mg t.i.d. at midnight, 6:00 a.m. and noon. 11/08-upon my evaluation she reported having 2 small seizures this morning. I will see with the neurologist would like to do and make any adjustments or continue with the changes that was made the day prior. At this time the patient does not feel comfortable with going home because of the adjustments made to her medications and still having 2 seizures this morning. Will see what Neurology recommends at this time. Patient has seizure precautions on at this time. Will continue monitoring the patient's symptoms, neurologist recommendations are greatly appreciated. (2) Syncope: Qualifiers: Syncope type: unspecified Qualified Code(s): R55 - Syncope and collapse Code(s): R55 - Syncope and collapse Status: Acute Assessment and Plan: Patient reports history of multiple syncopal episodes over the last month with no associated symptoms related. Echocardiogram showed normal EF at 60-65%, left ventricular distal it dysfunction grade 1. It does show that she has an ASD or a PFT. Carotid Doppler ultrasounds showed less than 50% bilaterally. CTA of chest was ordered which showed no acute pulmonary embolism as a cause. Patient's telemetry shows normal sinus rhythm with a heart rate of 72 beats per minute, no acute abnormality noted just a few alarms for artifact. Orthostatics on arrival: Laying 103/75, sitting 111/79, Standing 108/87. Negative for any orthostatic hypotension. She was complaining of dizziness/lightheaded with standing up so I ordered Bakari hose in she states she is feeling much better with those in place. Will continue monitoring the patient's symptoms but at this time everything is coming back normal. (3) Gait disturbance, post-stroke: Code(s): I69.398 - Other sequelae of cerebral infarction; R26.9 - Unspecified abnormalities of gait and mobility Status: Acute Assessment and Plan: Patient reports multiple falls over the last month. She does live alone but only has a caregiver, Sunday through Sunday for only 3-1/2 hours. Will order physical and occupational therapy for evaluation prior to discharge to see what they recommend and if she would need home health verses skilled rehab facility. (4) Anxiety: Code(s): F41.9 - Anxiety disorder, unspecified Status: Acute Assessment and Plan: Will continue her on her home medications. Time Spent With Patient Time with patient: 25 - 35 minutes Subjective Date/time seen: 11/09/19 15:58 Interval history: Date Of service 11/09/2019: The patient reports having 2 small seizures this morning. She states she did not tell anyone or push the call light because these seizures happen frequently when she is at home. She denies having a bad seizure like she did yesterday. She did not lose consciousness. She otherwise is just feeling slightly drowsy at this time. She denies any chest pain, shortness of breath, cough, fever, chills, nausea, vomiting, abdominal pain, leg swelling, calf pain, urinary symptoms, diarrhea, constipation or any other symptoms at this time. Review of Systems Review of Systems: All systems reviewed & are unremarkable except as noted in HPI and below Exam Narrative: Exam Narrative: General: 49-year-old woman sitting up in b
--- NOTE | 2019-11-09 18:17 | WPDNEUROPN ---
Progress Note: A&P Assessment and Plan (1) Spastic hemiparesis of left nondominant side: Code(s): G81.14 - Spastic hemiplegia affecting left nondominant side Status: Acute (2) History of seizures: Code(s): Z87.898 - Personal history of other specified conditions Status: Acute (3) Seizure: Code(s): R56.9 - Unspecified convulsions Status: Acute (4) Anxiety: Code(s): F41.9 - Anxiety disorder, unspecified Status: Acute (5) Gait disturbance, post-stroke: Code(s): I69.398 - Other sequelae of cerebral infarction; R26.9 - Unspecified abnormalities of gait and mobility Status: Acute Additional Plan I discussed with her in detail all option risk in the benefits and I will eat up to her and the discussion with Dr. Galdamez whatever she and her sister wishes to see another neurologist she can further discuss with my partner and he will be happy to refer her to 1 further their satisfaction all option risk in the benefits were discussed I would suggest getting a valproic acid level before the next dose I was unable to order to our system here but I will request our nurse to help in this regard in the meantime present management needs to be continued she did have an EEG performed not too long ago and I am not really sure the doing an other EEG will help us decide with 1 way or the other however it is doable and could be performed tomorrow Review of Systems Review of Systems: All systems reviewed & are unremarkable except as noted in HPI and below Exam Const: General: comfortable and no acute distress HENMT: Mouth: Yes moist mucous membranes Eyes: General: appearance normal, both eyes and all related structures Neck: Neck: supple and no JVD Resp: Effort & Inspection: normal respiratory effort Auscultation: clear to auscultation bilaterally Cardio: Rate: regular rate Rhythm: regular rhythm Skin: General skin exam: normal color and no rashes or lesions noted Neuro: Other: patient is awake and alert well only time place and person has left-sided spastic hemiparesis stable Extrem: General: normal to inspection Psych: Mental Status: mental status grossly normal Objective Data Vital Signs Vital Signs: Vital Signs - 24 hr 11/08/19 20:00 11/08/19 20:49 11/09/19 00:00 Temperature 36.6 C Pulse Rate 76 83 69 Respiratory Rate 16 Blood Pressure 102/64 Pulse Oximetry 98 11/09/19 04:02 11/09/19 04:06 11/09/19 08:00 Temperature 36.2 C L Pulse Rate 77 76 74 Respiratory Rate 14 Blood Pressure 111/53 L Pulse Oximetry 100 11/09/19 12:00 11/09/19 14:00 Temperature 36.5 C Pulse Rate 81 76 Respiratory Rate 12 Blood Pressure 116/67 Pulse Oximetry 99 Intake/Output Intake/Output: Intake & Output 11/06/19 11/07/19 11/08/19 11/09/19 23:59 23:59 23:59 23:59 Intake Total 9721 036 1571 Output Total 400 491 293 2792 Balance -400 1270 190 30 Meds/Results Medications: Active Medications Generic Name Dose Route Start Last Admin Trade Name Freq PRN Reason Stop Dose Admin Acetaminophen 650 mg 11/07/19 14:29 11/07/19 15:05 Tylenol Tablet PO 650 mg Q4H PRN Administration Headache Clorazepate Dipotassium 7.5 mg 11/07/19 19:00 11/09/19 18:09 Tranxene PO 7.5 mg 0600,1900 BEATRIS Administration Divalproex Sodium 1,000 mg 11/07/19 12:00 11/09/19 16:00 Depakote Ec Tab PO 1,000 mg 1200,1600,2000 BEATRIS Administration Lacosamide 300 mg 11/08/19 00:00 11/09/19 06:33 Vimpat PO 300 mg 0000,0600 BEATRIS Administration Lamotrigine 100 mg 11/09/19 00:00 11/09/19 12:30 Lamictal PO 100 mg 0000,0600,1200 BEATRIS Administration Levetiracetam 1,000 mg 11/07/19 06:25 11/09/19 06:32 Keppra Tablet PO 1,000 mg 0000,0600 BEATRIS Administration Meclizine HCl 25 mg 11/07/19 08:00 11/09/19 16:01 Antivert PO 25 mg 0800,1200,1600 BEATRIS Administration Montelukast Sodium 10 mg 11/07/19 09:00
[2019-11-10 05:51] VITALS: BP 96/59; PULSE 74; RESP 12; TEMP 36.6; O2SAT 97
[2019-11-10 06:11] LABS: Valproic Acid 124.7 ug/mL (50-120)
[2019-11-10] MEDS: LACOSAMIDE 100 MG TABLET 300 MG PO (06:21)
[2019-11-10] MEDS: lamoTRIgine 100 MG TABLET PO (06:21)
[2019-11-10] MEDS: levETIRAcetam 500 MG TABLET 1000 MG PO (06:21)
[2019-11-10] MEDS: MECLIZINE HCL 25 MG TABLET PO (08:33)
[2019-11-10] MEDS: MONTELUKAST SODIUM 10 MG TABLET PO (08:33)
--- NOTE | 2019-11-10 10:54 | PM.DS ---
DS: Diagnosis Admitting Diagnosis Admitting Diagnosis: Syncope and collapse Discharge Diagnosis (1) Seizure: Code(s): R56.9 - Unspecified convulsions Status: Acute Assessment and Plan: The patient reports having a seizure prior to arrival at home. The patient's neurologist is Dr. Vaughn who was consulted on the patient's case and did not want to make any changes to her medications initially on arrival. 11/07-the patient reported having a bad seizure and Dr. Long increased her Lamictal to 100 mg t.i.d. at midnight, 6:00 a.m. and noon. 11/08-upon my evaluation she reported having 2 small seizures this morning. I will see with the neurologist would like to do and make any adjustments or continue with the changes that was made the day prior. 11/09-today the patient states she had another few small seizures but she states this is pretty normal for her. She did not lose consciousness, incontinence or tongue biting. I talked to Dr. Vaughn who just evaluated the patient and wants to decrease her Lamictal back down to twice a day, at the request of the patient. I informed him that her valproic acid level was 124 which is just elevated from normal. He states at this time he does not want to make any more adjustments or decrease her valproic acid level because it would just stimulate her to have more seizure activity. He would like for her to be discharged home with the Lamictal twice daily like she had been doing at home. He would like for her to follow-up in the office in 6 weeks but he wants her to call the office and inform him of how she is doing in 1 week. I talked to the patient who understands and agrees with the plan at this time. She states her sister can pick her up and she is her caregiver. She also has personal assistance to come over Sunday through Sunday for 3-1/2 hours a day. She feels comfortable with going home at this time with the medication changes. (2) Syncope: Qualifiers: Syncope type: unspecified Qualified Code(s): R55 - Syncope and collapse Code(s): R55 - Syncope and collapse Status: Acute Assessment and Plan: Patient reports history of multiple syncopal episodes over the last month with no associated symptoms related. Echocardiogram showed normal EF at 60-65%, left ventricular distal it dysfunction grade 1. It does show that she has an ASD or a PFT. Carotid Doppler ultrasounds showed less than 50% bilaterally. CTA of chest was ordered which showed no acute pulmonary embolism as a cause. Patient's telemetry shows normal sinus rhythm with a heart rate of 72 beats per minute, no acute abnormality noted just a few alarms for artifact. Orthostatics on arrival: Laying 103/75, sitting 111/79, Standing 108/87. Negative for any orthostatic hypotension. She reports feeling better after wearing the compression stockings. She reports improvement of her lightheadedness and dizziness with this. (3) Gait disturbance, post-stroke: Code(s): I69.398 - Other sequelae of cerebral infarction; R26.9 - Unspecified abnormalities of gait and mobility Status: Acute Assessment and Plan: Patient reports multiple falls over the last month. She does live alone but only has a caregiver, Sunday through Sunday for only 3-1/2 hours. She is stable for discharge at this time to return home with care givers 5 days a week for 3.5 hours per day. (4) Anxiety: Code(s): F41.9 - Anxiety disorder, unspecified Status: Acute Assessment and Plan: Will continue her on her home medications. DS: Summary Hospital Course Reason for hospitalization: Patient is a 49 year old female with a history of traumatic brain injury, right temporal lobectomy status post CVA causing left-sided residual
--- NOTE | 2019-11-10 11:57 | WPDNEUROPN ---
Progress Note: A&P Assessment and Plan (1) Spastic hemiparesis of left nondominant side: Code(s): G81.14 - Spastic hemiplegia affecting left nondominant side Status: Acute (2) History of seizures: Code(s): Z87.898 - Personal history of other specified conditions Status: Acute (3) Anxiety: Code(s): F41.9 - Anxiety disorder, unspecified Status: Acute (4) Syncope: Qualifiers: Syncope type: unspecified Qualified Code(s): R55 - Syncope and collapse Code(s): R55 - Syncope and collapse Status: Acute (5) Gait disturbance, post-stroke: Code(s): I69.398 - Other sequelae of cerebral infarction; R26.9 - Unspecified abnormalities of gait and mobility Status: Acute Additional Plan stable doesnot want lamictal times 3 per day has taken before with some problems Review of Systems Review of Systems: All systems reviewed & are unremarkable except as noted in HPI and below Exam Const: General: cooperative, comfortable and no acute distress Nutritional Appearance: average body habitus Orientation/consciousness: oriented to person, oriented to place and oriented to time HENMT: Head: normal to inspection Eyes: General: appearance normal, both eyes and all related structures Neck: Neck: full ROM Resp: Effort & Inspection: normal respiratory effort Auscultation: clear to auscultation bilaterally Cardio: Rate: regular rate Rhythm: regular rhythm GI: Auscultation: normal bowel sounds Skin: General skin exam: no rashes or lesions noted Neuro: General: patient oriented x3, moves all extremities and no meningeal signs Cranial nerves: Yes Equal, round and reactive pupils present, Yes Bilaterally intact EOM present, Yes Nystagmus not present, Yes Normal facial strength present, Yes Midline tongue present, Yes Symmetric palate elevation present, Yes Ability to bilaterally rotate head present and Yes Ability to bilaterally elevate shoulders present Cognition (Neuro): normal cognition Speech: normal speech Motor exam (neuro): Pronator motor function not present and Motor abnormalities not present Sensory Exam: Sensory deficit (Neuro) Coordination: ohgnlb-dh-wees test normal Psych: Appearance: grossly normal Speech and movement: Normal speech and movement present Affect: normal affect Attitude: cooperative Thought process: Circumstantial thought process present Thought content: Yes Normal thought content present Insight: Fair insight present (Psych) Judgement: Fair judgement present (Psych) Objective Data Vital Signs Vital Signs: Vital Signs - 24 hr 11/09/19 12:00 11/09/19 14:00 11/09/19 22:00 Temperature 36.5 C 36.7 C Pulse Rate 81 76 77 Respiratory Rate 12 16 Blood Pressure 116/67 91/60 L Pulse Oximetry 99 97 11/10/19 05:51 Temperature 36.6 C Pulse Rate 74 Respiratory Rate 12 Blood Pressure 96/59 L Pulse Oximetry 97 Intake/Output Intake/Output: Intake & Output 11/07/19 11/08/19 11/09/19 11/10/19 23:59 23:59 23:59 23:59 Intake Total 1348 653 8091 220 Output Total 166 949 4675 800 Balance 1270 190 30 -580 Meds/Results Medications: Active Medications Generic Name Dose Route Start Last Admin Trade Name Freq PRN Reason Stop Dose Admin Acetaminophen 650 mg 11/07/19 14:29 11/07/19 15:05 Tylenol Tablet PO 650 mg Q4H PRN Administration Headache Clorazepate Dipotassium 7.5 mg 11/07/19 19:00 11/10/19 06:20 Tranxene PO 7.5 mg 0600,1900 BEATRIS Administration Divalproex Sodium 1,000 mg 11/07/19 12:00 11/09/19 20:20 Depakote Ec Tab PO 1,000 mg 1200,1600,2000 BEATRIS Administration Lacosamide 300 mg 11/08/19 00:00 11/10/19 06:21 Vimpat PO 300 mg 0000,0600 BEATRIS Administration Lamotrigine 100 mg 11/09/19 00:00 11/10/19 06:21 Lamictal PO 100 mg 0000,0600,1200 BEATRIS Administration Levetiracetam 1,000 mg 11/07/19 06:25 11/10/19 06:21 Keppra Tablet PO 1,000 mg 0000,0600 [facility]
[2019-11-11 04:23] LABS: Levetiracetam Keppra 25.8 mcg/mL (12.0-46.0)
[2019-11-11 08:14] LABS: Lamotrigine Lamictal 11.7 mcg/mL (4.0-18.0)
== END 2019-11-10 12:30 | disposition home health service (06) | DRG 101 ==
LOC: ANHED 19:12 → ANH3MED 22:41
PROVIDERS: Physician Assistant; Psychiatry & Neurology Neurology; Admitting Provider Family Medicine; Emergency Provider Emergency Medicine; PCP Nurse Practitioner Family; Visit Provider Internal Medicine
DX: G40.804 Other epilepsy, intractable, without status epilepticus (principal); I69.354 Hemiplegia and hemiparesis following cerebral infarction affecting left non-dominant side; R55 Syncope and collapse; I69.398 Other sequelae of cerebral infarction; R26.9 Unspecified abnormalities of gait and mobility; F41.9 Anxiety disorder, unspecified; Z87.820 Personal history of traumatic brain injury; Z91.81 History of falling; Z90.710 Acquired absence of both cervix and uterus
CPT/HCPCS: 36415; 51701; 70450; 71046; 71275; 72125; 72128; 72131; 73030; 73080; 73110; 73521; 80053; 80164; 80175; 80177; 81001; 83690; 83880; 84484; 85025; 85380; 93005; 93306; 93880; 96375; 97161; 97165; 97535; 99285; A9270; Q9967

== ENCOUNTER 2019-11-13 10:53 | Observation (INO) | payer MEDICARE, MEDICAID, SELFPAY ==
[2019-11-13] VITALS (12 sets, daily range): BP systolic 79–125; BP diastolic 47–81; PULSE 68–135; RESP 10–18; TEMP 36.1–36.8; O2SAT 97–100; BMI 21.9
--- NOTE | ~2019-11-13 | XR_ITS ---
XR lumbar spine 2-3V DATE: 11/13/2019 12:07 INDICATION: Back pain following a fall. TECHNIQUE: AP, lateral, coned lateral lumbosacral views COMPARISON: None FINDINGS: Normal alignment of the lumbar spine. No fracture or bone destruction or spondylolisthesis. The lumbar and included lower thoracic pedicles are intact. There is severe degenerative disc disease at L5-S1. The sacrum joints are intact. IMPRESSION: No evidence of lumbar spine fracture Severe degenerative disc disease at L5-S1 Reviewed, dictated and finalized at location A.
--- NOTE | ~2019-11-13 | XR_ITS ---
EXAMINATION: XR pelvis 1-2V DATE: 11/13/2019 12:06 INDICATION: Fall TECHNIQUE: An anteroposterior view of the pelvis was obtained. COMPARISON: 11/06/2019 FINDINGS: Alignment is normal. No fracture. Mild osteoarthritis at the bilateral hips. Sacrum and sacroiliac bobby ints are normal. Soft tissues are unremarkable. IMPRESSION: 1. Bilateral hip osteoarthritis. No acute osseous abnormality. Reviewed, dictated and finalized at location A.
--- NOTE | ~2019-11-13 | CT_ITS ---
EXAMINATION: CT brain wo con DATE: 11/13/2019 11:48 INDICATION: Dizziness. Syncope. Left hemiparalysis TECHNIQUE: Computed tomography (CT) of the head was performed without intravenous contrast. The mA wa s adjusted according to patient size. Iterative reconstruction technique was employed. Exam dose: 60 5.33 mGy-cm total exam DLP. COMPARISON: 11/06/2019 CT brain FINDINGS: Again noted is chronic encephalomalacia of the right temporal lobe and insula and overlying craniectomy defect. Left temporal craniectomy defect is also noted. No intracranial mass lesion or hemorrhage is evident. No subdural or epidural hematoma. No midline sh ift or mass effect. IMPRESSION: No acute intracranial finding or significant change since 11/06/2019 Reviewed, dictated and finalized at Location A. Reviewed, dictated and finalized at location A. IMPRESSION: No acute intracranial finding or significant change since 0
--- NOTE | ~2019-11-13 | XR_ITS ---
EXAMINATION: XR chest 2V DATE: 11/13/2019 12:06 INDICATION: Shortness of breath. TECHNIQUE: AP and lateral views of the chest were obtained. COMPARISON: Chest radiograph and CT dated 11/06/2019 FINDINGS: The lungs remain clear with no focal airspace opacities, pulmonary edema, pleural effusion or pneumot horax. The cardiomediastinal silhouette is normal. Visualized bones and soft tissues are unremarkable . IMPRESSION: 1. No acute cardiopulmonary disease. Reviewed, dictated and finalized at location A.
[2019-11-13 11:49] LABS: Basophils Percent Auto 0.5 % (0.2-1.2); Eosinophils Percent Auto 0.1 % (0-4.4); Hematocrit 44.3 % (37.0-47.0); Immature Granulocyte Absolute 0.04 K/mm3 (0.00-0.031); Immature Granulocyte Percent A 0.5 % (0-0.5); Immature Platelet Fraction Pct 1.7 % (0.9-11.2); Lymphocytes Absolute Auto 0.92 K/mm3 (0.9-3.2); Lymphocytes Percent Auto 12.3 % (18.3-44.2); Mean Corpuscular HGB Conc 33.9 g/dl (32-36); Mean Corpuscular Hemoglobin 32.4 pg (26-34); Mean Corpuscular Volume 95.7 fl (80-100); Mean Platelet Volume 9.6 fl (7.4-10.4); Monocytes Absolute Auto 0.6 K/mm3 (0.1-0.6); Monocytes Percent Auto 7.9 % (2.6-8.5); Neutrophils Absolute Auto 5.9 K/mm3 (1.3-6.7); Neutrophils Percent Auto 78.7 % (45.5-73.1); Platelet Count Result 159 k/mm3 (150-375); Red Blood Count 4.63 M/mm3 (4.2-5.4); Red Cell Distribution Width 12.6 % (11.5-14.5); White Blood Count 7.5 K/mm3 (4.5-10.0)
[2019-11-13 11:57] LABS: INR 0.9; Prothrombin Time 11.9 Seconds (11.1-14.7)
[2019-11-13 11:58] LABS: Partial Thromboplastin Time 28.4 SECONDS (22.3-36.8)
[2019-11-13] MEDS: SODIUM CHLORIDE 0.9% IV 1,000 ML 999 ML IV CONT ×2 (12:15→12:20)
[2019-11-13] MEDS: ONDANSETRON INJ 4 MG/2 ML VIAL IV PUSH (12:20)
[2019-11-13] MEDS: FAMOTIDINE 20 MG/2 ML VIAL IV PUSH ×2 (12:20→20:34)
[2019-11-13] MEDS: MECLIZINE HCL 25 MG TABLET PO ×2 (12:35→20:34)
[2019-11-13] MEDS: LORAZEPAM INJ 2 MG/ML VIAL 1 MG IV PUSH (12:35)
[2019-11-13 13:03] LABS: Ethanol < 10 mg/dL (<10)
[2019-11-13 13:04] LABS: Alanine Aminotransferase 14 U/L (4-35); Albumin Level 4.4 g/dL (3.5-5.1); Alkaline Phosphatase 63 U/L (38-126); Aspartate Amino Transferase 29 U/L (14-36); Bilirubin,Total 0.5 mg/dL (0.2-1.3); Blood Urea Nitrogen 15 mg/dL (7-17); Calcium 9.3 mg/dL (8.4-10.2); Carbon Dioxide 32 mmol/L (22-30); Chloride 101 mmol/L (98-107); Creatine Kinase 29 U/L (30-135); Estimated CRCL calculation 77 ml/min; Estimated Glomerular Filt Rate > 60; Glucose 94 mg/dL (65-105); Lipase 58 U/L (23-300); Potassium 3.6 mmol/L (3.4-5.0); Sodium 140 mmol/L (137-145)
[2019-11-13 13:12] LABS: NT Pro B Type Natriuretic Pept 67 PG/ML (5-100); Troponin I < 0.012 ng/mL (0.000-0.034)
--- NOTE | 2019-11-13 14:17 | ED.GENADULT ---
HPI - General Adult General Chief complaint: Dizziness <CONSTANTINE Ornelas Last Filed: 11/13/19 14:24> Stated complaint: Ground level fall/dizzy <CONSTANTINE Ornelas Last Filed: 11/13/19 14:24> Time Seen by Provider: 11/13/19 11:07 <CONSTANTINE Ornelas Last Filed: 11/13/19 14:24> Source: EMS <CONSTANTINE Ornelas Last Filed: 11/13/19 14:24> Mode of arrival: ambulatory <CONSTANTINE Ornelas Last Filed: 11/13/19 14:24> Limitations: no limitations <CONSTANTINE Ornelas Last Filed: 11/13/19 14:24> History of Present Illness HPI narrative: Patient is a 49-year-old female who presents to emergency department for evaluation of having fallen patient notes she had a syncopal episode patient went to take her medications. Patient was released from the hospital on the after having had dizziness shortness of breath and frequent falls. Patient with history of CVA complex seizures patient has had multiple evaluations. . Patient with thorough evaluation her last hospital visit. Patient followed by neurology. On arrival patient notes left pelvic pain. Patient also notes she continues to have some right-sided chest discomfort noticed an aching pain. Patient notes shortness of breath and dizziness. Patient on arrival is in the room in no distress. Patient presents with C-spine immobilization <CONSTANTINE Ornelas Last Filed: 11/13/19 14:24> Related Data Home medications: Home Medications Medication Instructions Recorded Confirmed Combivent Respimat 1 puff INHALATION HS 11/06/19 11/13/19 Vimpat 100 mg PO BID 11/06/19 11/13/19 Vimpat 200 mg PO BID 11/06/19 11/13/19 czzkcmjizn-ilvimpnkvc-xda-cod 1 cap PO Q4H PRN 11/06/19 11/13/19 clorazepate dipotassium 7.5 mg PO BID 11/06/19 11/13/19 divalproex 1,000 mg PO TID 11/06/19 11/13/19 ergocalciferol (vitamin D2) 1,250 mcg PO WEEKLY 11/06/19 11/13/19 levetiracetam [Keppra] 1,000 mg PO BID 11/06/19 11/13/19 meclizine 25 mg PO TID 11/06/19 11/13/19 montelukast 10 mg PO DAILY 11/06/19 11/13/19 lamotrigine [Lamictal] 100 mg PO TID 11/13/19 11/13/19 <CONSTANTINE Ornelas Last Filed: 11/13/19 14:24> Allergies/adverse reactions: Allergies Allergy/AdvReac Type Severity Reaction Status Date / Time Barbiturates Allergy Unknown ? Verified 11/06/19 11:57 Hydantoins Allergy Unknown WBC Verified 11/06/19 11:57 DROPPED OUT meperidine Allergy Unknown DIZZY Verified 11/06/19 11:57 Penicillins Allergy Unknown ? Verified 11/06/19 11:57 phenytoin Allergy Unknown ???: Verified 11/06/19 11:57 ANTICONVULS Allergy Unknown Unknown Uncoded 11/06/19 11:57 ANTIHISTAMINE Allergy Unknown Unknown Uncoded 11/06/19 11:57 nfa Allergy Unknown Unknown Uncoded 11/06/19 11:57 SALICYLATES Allergy Unknown TOLD NOT Uncoded 11/06/19 11:57 TO TAKE WITH SEIZURE MEDS <CONSTANTINE Ornelas Last Filed: 11/13/19 14:24> Review of Systems Review of Systems: All systems reviewed & are unremarkable except as noted in HPI and below <CONSTANTINE Ornelas Last Filed: 11/13/19 14:24> [facility] Past Medical History Medical History: Medical History (Updated 11/13/19 @ 17:30 by Amalia Deal NP) Anxiety History of CVA (cerebrovascular accident) Status post lobectomy of her right temporal lobe age 15 History of seizures From TBI and lobectomy a brain History of traumatic brain injury At 6 years old Migraine Peripheral vision loss Spastic hemiparesis of left nondominant side <CONSTANTINE Ornelas Last Filed: 11/13/19 14:24> Surgical History Surgical History: Surgical History (Updated 11/13/19 @ 17:22 by Amalia Deal NP) H/O lymph node biopsy History of colonoscopy History of dilation and curettage History of skin graft Left hand History of total hysterectomy History of tubal ligation Status post lobectomy of brain Right temporal lobectomy <Harinder Nair PA-C - [place]
[2019-11-13 14:53] LABS: Troponin I < 0.012 ng/mL (0.000-0.034)
--- NOTE | 2019-11-13 16:30 | ADMGEN ---
This patient, Estefania Benito, was admitted to 2 Medical Room 249-01. Patient/family oriented to hospital policies and general routines including ID bracelet, bed and alarms, visiting hours, pain management, procedures, bathroom and other care routines, personal items, smoking policy, room service/diet, and visiting hours. Valuables list has been completed. Information on how to activate the Rapid Response Team has been discussed. Patient/Family are encouraged to report perceived risks to care and to ask questions if they do not understand what they are told or what they should do.
--- NOTE | 2019-11-13 16:38 | ECG_ITS ---
Measurements Intervals [place] Rate: 71 P: 63 NE: 125 QRS: 0 QRSD: 96 T: 93 QT: 388 QTc: 422 Interpretive Statements SINUS RHYTHM BORDERLINE ST-T WAVE ABNORMALITY- DIFFUSE LEADS BASELINE ARTIFACT- I, III, AVL, V1 BORDERLINE ECG Electronically Signed On 11-13-2019 18:43:46 CDT by Daniel Mercado D.O.
[2019-11-13] MEDS: LACTATED RINGERS 1,000 ML 80 ML IV CONT (16:51)
--- NOTE | 2019-11-13 17:11 | PM.IMHP ---
H&P: HPI History of Present Illness Chief complaint: syncope Narrative: Estefania Benito is a 49 year old female who has a past medical history of having a CVA with left side effect. She had her CVA when she was 15 years old. She also has a seizure disorder. She has history of having syncope and vertigo. Patient tells me that she takes meclizine for this. The patient stated that she was having some dizziness today and felt like if she just made at the couch she would be okay. She went to the couch with her wheeled walker and sat down and tried to relax. She thought maybe that she was just having an anxiety attack or possibly a partial seizure. The patient felt fine when she was lying down but then she tried to get go to the bathroom she said she had a syncopal episode and fell on the floor. She is also complaining of some left hip pain and some midsternal chest pain which is reproducible with palpation. Patient was just released from this hospital on the after having had dizzy spells and shortness of breath and frequent falls. The patient stated that she has been in a rehab program in the past and a [place] [facility] and would be agreeable to being in SNF facility. The patient stated home health just started coming her house and they come there 3 times a week. Patient is being followed by Neurology. Patient had an EKG upon arrival to the floor which is read as sinus rhythm. ST deviation and moderate T-wave abnormality consider anterior all ischemia. The patient had some a borderline T-wave abnormal T earlier this month. Today's EKG is comparable to her EKG from 2 weeks ago. Patient's chest pain is reproducible. She is on telemetry. Patient stated that she is on meclizine at home. Patient stated that when she lays flat she does not have any symptoms. However when she gets up and moves the room starts is been and she feels like she is ?holding on to the world?. She is not able to walk due to the dizziness. She says the meclizine does help. Here she was started on IV fluids. She was given Zofran for the nausea. She is also given Ativan. She was given Antivert in the emergency room. She was given IV Pepcid. Patient states that she lifts her head off the pillow she still feels dizzy. Date of admission 11/13/2019 Review of Systems Review of Systems: All systems reviewed & are unremarkable except as noted in HPI and below Constitutional: Constitutional: Reports as per HPI and Reports no additional constitutional complaints Eyes: Eyes: Reports as per HPI and Reports no additional eye complaints ENT: Reports system reviewed and no additional complaints, except as documented and Reports Normal hearing present Cardiovascular: Cardiovascular: Reports no additional cardiovascular complaints Respiratory: Respiratory: Reports no additional respiratory complaints and Reports no additional respiratory complaints Gastrointestinal: Gastrointestinal: Reports as per HPI and Reports no additional gastrointestinal complaints Musculoskeletal: Musculoskeletal: Reports no additional musculoskeletal complaints Integumentary/Breasts: Skin/Breast: Reports system reviewed and no additional complaints, except as docu and Reports as per HPI Neurologic: Reports system reviewed and no additional complaints, except as documented, Reports as per HPI and Reports Normal hearing present Psychiatric: Psychiatric: Reports no additional psychiatric complaints and Reports as per HPI Endocrine: Endocrine: Reports no additional endocrine complaints Hematologic/Lymphatic: Hematologic/Lymphatic: Reports no additional hematologic/lymphatic complaints Allergic/Immunologic: Allergic/Immunologic: Reports no additional allergic/immunologic complaints [facility] Past Medical History Medical History (Updated 11/13/19 @ 17:30 by Amalia Deal NP) Anxiety History of CVA (cerebrovascular accident) Status post lobectomy of her right temporal lobe age 15 History of seizures F
[2019-11-13] MEDS: DIVALPROEX SODIUM 250 MG TABEC 1000 MG PO (20:35)
[2019-11-13] MEDS: lamoTRIgine 100 MG TABLET PO (20:35)
[2019-11-13] MEDS: levETIRAcetam 500 MG TABLET 1000 MG PO (20:35)
[2019-11-13 23:14] LABS: Troponin I < 0.012 ng/mL (0.000-0.034)
[2019-11-13 23:23] LABS: Amphetamine Screen Urine Negative (Negative); Barbiturate Screen Urine Negative (Negative); Benzodiazepines Screen Urine Positive (Negative); Cannabinoid Screen Urine Negative (Negative); Cocaine Screen Urine Negative (Negative); Methadone Screen Urine Negative (Negative); Opiate Screen Urine Negative (Negative); Phencyclidine Screen Urine Negative (Negative)
[2019-11-13] MEDS: LACOSAMIDE 100 MG TABLET PO (23:55)
[2019-11-13] MEDS: LACOSAMIDE 200 MG TABLET PO (23:55)
[2019-11-14] VITALS (7 sets, daily range): BP systolic 102; BP diastolic 55–63; PULSE 66–80; RESP 16–18; TEMP 36.1–36.5; O2SAT 98–99
[2019-11-14 01:50] LABS: Troponin I < 0.012 ng/mL (0.000-0.034)
[2019-11-14] MEDS: LACTATED RINGERS 1,000 ML 80 ML IV CONT (04:58)
[2019-11-14 05:47] LABS: Basophils Percent Auto 0.6 % (0.2-1.2); Eosinophils Percent Auto 0.9 % (0-4.4); Hematocrit 36.4 % (37.0-47.0); Hemoglobin 11.9 g/dL (12.0-15.0); Immature Granulocyte Absolute 0.02 K/mm3 (0.00-0.031); Immature Granulocyte Percent A 0.4 % (0-0.5); Lymphocytes Percent Auto 40.8 % (18.3-44.2); Mean Corpuscular HGB Conc 32.7 g/dl (32-36); Mean Corpuscular Hemoglobin 32.2 pg (26-34); Mean Corpuscular Volume 98.6 fl (80-100); Mean Platelet Volume 9.8 fl (7.4-10.4); Monocytes Absolute Auto 0.4 K/mm3 (0.1-0.6); Monocytes Percent Auto 8.4 % (2.6-8.5); Neutrophils Absolute Auto 2.3 K/mm3 (1.3-6.7); Neutrophils Percent Auto 48.9 % (45.5-73.1); Platelet Count Result 114 k/mm3 (150-375); Red Blood Count 3.69 M/mm3 (4.2-5.4); Red Cell Distribution Width 12.9 % (11.5-14.5); White Blood Count 4.7 K/mm3 (4.5-10.0)
[2019-11-14 05:49] LABS: Sodium 139 mmol/L (137-145)
[2019-11-14 05:54] LABS: Blood Urea Nitrogen 5 mg/dL (7-17); Calcium 8.6 mg/dL (8.4-10.2); Carbon Dioxide 29 mmol/L (22-30); Chloride 106 mmol/L (98-107); Estimated CRCL calculation 88 ml/min; Estimated Glomerular Filt Rate > 60; Glucose 77 mg/dL (65-105); Potassium 3.6 mmol/L (3.4-5.0)
[2019-11-14 06:00] LABS: Troponin I < 0.012 ng/mL (0.000-0.034)
[2019-11-14 06:05] LABS: Valproic Acid 79.9 ug/mL (50-120)
[2019-11-14] MEDS: LACOSAMIDE 100 MG TABLET PO (06:07)
[2019-11-14] MEDS: lamoTRIgine 100 MG TABLET PO (06:08)
[2019-11-14] MEDS: LACOSAMIDE 200 MG TABLET PO (06:08)
[2019-11-14] MEDS: MECLIZINE HCL 25 MG TABLET PO ×2 (06:08→13:03)
[2019-11-14] MEDS: DIVALPROEX SODIUM 250 MG TABEC 1000 MG PO ×2 (06:08→13:03)
[2019-11-14] MEDS: levETIRAcetam 500 MG TABLET 1000 MG PO (08:25)
[2019-11-14] MEDS: ERGOCALCIFEROL 50,000 UNIT CAPSULE 50000 UNITS PO (08:25)
[2019-11-14] MEDS: MONTELUKAST SODIUM 10 MG TABLET PO (08:27)
[2019-11-14] MEDS: FAMOTIDINE 20 MG/2 ML VIAL IV PUSH (08:27)
--- NOTE | 2019-11-14 09:00 | PC.NURSE ---
During morning assessment, patient looks at me and states I am having a seizure. However, patient alert, oriented, no jerking movements, able to communicate properly with this RN. Administered seizure medications as ordered. Dr. Vaughn scheduled to see patient today. Will continue to monitor. Patient reporting feeling drowsy and out of it after said seizure.
--- NOTE | 2019-11-14 14:31 | PM.DS ---
DS: Admitting Diagnosis Admitting Diagnosis Admitting Diagnosis: Syncope and collapse DS: Discharge Diagnosis Discharge Diagnosis (1) Syncope: Code(s): R55 - Syncope and collapse Status: Acute Assessment and Plan: This is the second presentation in about a week for similar symptoms. Vertigo is chronic. Patient's symptoms are stable at this time. CC has placement in for SNF. BPs appear to be stable. Patient also felt this may be related to her anxiety. Telemetry shows sinus rhythm with artifact and occasional PACs. Asymptomatic. Spoke with Dr. Vaughn who was not changing medications and comfortable with discharge. Discharge today to SNF for further rehab Follow up with Neurology as outpatient Continue home medications for vertigo CRISTINE Hose (2) Vertigo: Code(s): R42 - Dizziness and giddiness Status: Acute Assessment and Plan: This appears to be chronic. Will continue with her meclizine. IVF during her stay. (3) Spastic hemiparesis of left nondominant side: Code(s): G81.14 - Spastic hemiplegia affecting left nondominant side Status: Acute Assessment and Plan: Previous CVA at age 15; chronic - no acute issues Follow up with Neurology (4) Seizure: Code(s): R56.9 - Unspecified convulsions Status: Acute Assessment and Plan: No acute issues Continue home medications as prescribed per Neurology recommendations. Neurology to follow up as outpatient (5) Anxiety: Code(s): F41.9 - Anxiety disorder, unspecified Status: Acute Assessment and Plan: Patient is comfortable and no complaints at the moment Continue home medication regimen DS: Summary Hospital Course Reason for hospitalization: Syncope and collapse; placement Hospital Course: Patient is a 49 yo F with history of CVA with left sided spastic hemiparesis, migraine, TBI, and seizures, as well as, recent admission/discharge from 11/05-11/09 who presented to the ER on 11/12 with reports of falling after suffering a syncopal episode. Patient had thorough evaluation for her similar presentation. Patient was admitted under the setting of safety concerns given syncopal episodes and falls; admitted for placement. Please see H&P for further details. Presenting VS: Temp Pulse Resp BP Pulse Ox 98.3 F 85 10 L 125/56 L 99 11/13/19 10:52 11/13/19 10:52 11/13/19 10:52 11/13/19 10:52 11/13/19 10:52 Presenting Pertinent labs: CBC, chem, tox screen grossly unremarkable Micro: none Imaging: Head CT 11/13/19 11:50 IMPRESSION: No acute intracranial finding or significant change since 11/06/2019 Chest X-Ray 11/13/19 12:14 IMPRESSION: 1. No acute cardiopulmonary disease. Lumbar Spine X-Ray 11/13/19 12:15 IMPRESSION: No evidence of lumbar spine fracture Severe degenerative disc disease at L5-S1 Pelvis X-Ray 11/13/19 12:15 IMPRESSION: 1. Bilateral hip osteoarthritis. No acute osseous abnormality. ECG: Interpretive Statements SINUS RHYTHM BORDERLINE ST-T WAVE ABNORMALITY- DIFFUSE LEADS BASELINE ARTIFACT- I, III, AVL, V1 BORDERLINE ECG Patient was admitted to the hospitalist service for placement given her frequent syncopal episodes and falls while at home. Patient did well during her stay and worked with PT/OT. She was given CRISTINE hose to improve BP. CC consult was placed for placement and patient was to proceed to [facility] for further PT/OT rehab. Patient was agreeable and comfortable with plan for discharge. Patient hemodynamically stable and improving at discharge on 11/13. Please refer to notes from 11/05-11/09 hospital stay for further details in extensive work up for similar presentation. Status at Discharge Overall status at discharge:
--- NOTE | 2019-11-14 18:46 | CONS_ITS ---
DATE OF CONSULTATION: 11/13/2019 HISTORY OF PRESENT ILLNESS: A 49-year-old has been admitted to [facility] through the emergency room for the complaints of syncopal episode. 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 The patient reported that she takes meclizine. She was having recurrent dizziness. She went to the couch using a wheel walker, sat down, tried to relax, but she could not relax. She felt as if she is having panic attack. She was unable to differentiate whether it is a panic attack or seizure. She tried to go to the bathroom when lying in bed and again she felt dizzy and was unable to carry out. She also complained of left hip pain with midsternal chest pain. The patient was recently released from the hospital. 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 Her initial EKG was normal with ST deviation and moderate T-wave abnormality. She takes meclizine at home. If she lays flat, she has no symptom. However, when she gets up, moves, she is unable to hold herself. She feels extremely dizzy. 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 In addition to the seizure disorder and also result in peripheral visual loss on the left side and spastic left hemiparesis. She has undergone lymph-node biopsy, colonoscopy, D and C's, total hysterectomy, tubal ligation, lobectomy of the brain. She walks using the rolling walker at home. Her sister has a durable [id number]. She does not want to be intubated, but would like to have CPR. She is a never smoker, never drinker. MEDICATIONS: Included: 1. Combivent 1 puff inhalation h.s. 2. Vimpat 100 mg twice a day and 200 mg twice a day, that is total of 300 twice a day. 3. Clorazepate 7.5 b.i.d. 4. Depakote 1000 mg t.i.d. 5. Vitamin D 1250 mcg weekly. 6. Keppra 1000 mg b.i.d. 7. Meclizine 25 t.i.d. 8. Lamotrigine 100 mg t.i.d. ALLERGIES: SHE IS ALLERGIC TO MULTIPLE MEDICATIONS MENTION INCLUDING BARBITURATE, HYDANTOIN, MEPERIDINE, PENICILLIN, PHENYTOIN, SALICYLATES. PHYSICAL EXAMINATION: VITAL SIGNS: Evaluation up until now has revealed her to be afebrile, normotensive, blood pressure 125/56. HEENT: Head normocephalic with no cranial bruit. Ear, nose, throat exam normal. NECK: Supple with no cervical bruit. No thyromegaly. No lymphadenopathy. HEART: Regular. LUNGS: Clear. ABDOMEN: Soft. NEUROLOGICAL: She is awake, alert, follows the verbal commands appropriately. Speech is full with no evidence of dysphagia or dysarthria. Pupils round, regular. Henning of vision with left homonymous hemianopia. Extraocular movements are full. Face symmetrical. Tongue midline. Motor examination revealed her to have left hemiparesis with hyperreflexia. Upgoing plantar responses. There is no evidence of gross cerebellar deficit. At this stage, she is receiving the IV fluids along with all the other medication. We will check her orthostatics and make the adjustment accordingly. JYOTI CASTRO M.D. GARMENT INSPECTOR GARMENT INSPECTOR D I MT: [place]
[2019-11-17 19:27] LABS: Levetiracetam Keppra 29.8 mcg/mL (12.0-46.0)
== END 2019-11-14 16:20 ==
LOC: ANHED 14:31 → ANH2MED 11-14 06:49
PROVIDERS: Emergency Medicine Emergency Medical Services; Nurse Practitioner; Admitting Provider Hospitalist; Emergency Provider General Practice; PCP Nurse Practitioner Family; Visit Provider Physician Assistant
DX: R55 Syncope and collapse (principal); I69.354 Hemiplegia and hemiparesis following cerebral infarction affecting left non-dominant side; G40.909 Epilepsy, unspecified, not intractable, without status epilepticus; R07.9 Chest pain, unspecified; R42 Dizziness and giddiness; F41.8 Other specified anxiety disorders; R29.6 Repeated falls; R06.02 Shortness of breath
CPT/HCPCS: 36415; 70450; 71046; 72100; 72170; 80048; 80053; 80164; 80177; 80307; 82550; 83690; 83880; 84484; 85025; 85055; 85610; 85730; 93005; 96361; 96374; 96375; 96376; 97162; 97165; 99285; A9270; G0378; G0379; J0131; J2060; J2405; J7030; J7120

== ENCOUNTER 2019-11-19 12:34 | Emergency (ER) | payer MEDICARE, MEDICAID, SELFPAY ==
--- NOTE | ~2019-11-19 | CT_ITS ---
EXAMINATION: CT brain wo con DATE: 11/19/2019 13:14 INDICATION: Head injury. TECHNIQUE: Computed tomography (CT) of the head was performed without intravenous contrast. The mA wa s adjusted according to patient size. Iterative reconstruction technique was employed. The dose-lengt h product was 605.33 mGy-cm. COMPARISON: Head CT 11/13/2019 FINDINGS: There are changes of right-sided craniotomy. There is a large distribution of encephalomala bora in right temporal lobe and insula. There is asymmetric volume loss of right frontal lobe. There i s no intracranial hemorrhage, acute infarction, or abnormal intracranial mass lesion. There is ex vac uo dilatation of right lateral ventricle. The orbits are normal. The paranasal sinuses are clear. The mastoid air cells are normal. IMPRESSION: 1. Chronic encephalomalacia involving right temporal lobe and right insula. Reviewed, dictated and finalized at location A.
[2019-11-19 12:33] VITALS: BP 145/65; PULSE 81; RESP 18; TEMP 36.7; O2SAT 100
--- NOTE | 2019-11-19 13:11 | ED.GENADULT ---
HPI - General Adult General Chief complaint: Seizure <Harinder NairCONSTANTINE - Last Filed: 11/19/19 16:22> Stated complaint: ?SEIZURE <Harinder NairCONSTANTINE Last Filed: 11/19/19 16:22> Source: patient <Harinder Nair CONSTANTINE Jean Last Filed: 11/19/19 16:22> Mode of arrival: ambulatory <Harinder NairCONSTANTINE - Last Filed: 11/19/19 16:22> Limitations: no limitations <Harinder NairCONSTANTINE Jean Last Filed: 11/19/19 16:22> History of Present Illness HPI narrative: Patient is a 49-year-old female who presents to emergency department per EMS from home patient notes that she believes she may have been having seizures with history of seizures followed by neurology patient on arrival to emergency department notes that she had to call EMS yesterday and today after falling onto the ground and having difficulty getting up. On arrival to emergency department today patient notes she continues to have dizziness which is chronic in nature. Patient also notes that she has been urinating more frequently over the last several days. Patient notes right shoulder pain which she has been having. Patient on arrival in the room in no distress and notes that she has been compliant with her medications. Patient had recent hospitalization was placed in nursing home home only for 1 day per patient and discharged home. <Harinder NairCONSTANTINE - Last Filed: 11/19/19 16:22> Related Data Home medications: Home Medications Medication Instructions Recorded Confirmed Combivent Respimat 1 puff INHALATION HS 11/06/19 11/13/19 Vimpat 100 mg PO BID 11/06/19 11/13/19 Vimpat 200 mg PO BID 11/06/19 11/13/19 ftlknndili-aufokktzry-mnu-cod 1 cap PO Q4H PRN 11/06/19 11/13/19 clorazepate dipotassium 7.5 mg PO BID 11/06/19 11/13/19 divalproex 1,000 mg PO TID 11/06/19 11/13/19 ergocalciferol (vitamin D2) 1,250 mcg PO WEEKLY 11/06/19 11/13/19 levetiracetam [Keppra] 1,000 mg PO BID 11/06/19 11/13/19 meclizine 25 mg PO TID 11/06/19 11/13/19 montelukast 10 mg PO DAILY 11/06/19 11/13/19 <Harinder Nair PA-C - Last Filed: 11/19/19 16:22> Allergies/adverse reactions: Allergies Allergy/AdvReac Type Severity Reaction Status Date / Time Barbiturates Allergy Unknown ? Verified 11/19/19 14:31 Hydantoins Allergy Unknown WBC Verified 11/19/19 14:31 DROPPED OUT meperidine Allergy Unknown DIZZY Verified 11/19/19 14:31 Penicillins Allergy Unknown ? Verified 11/19/19 14:31 phenytoin Allergy Unknown ???: Verified 11/19/19 14:31 ANTICONVULS Allergy Unknown Unknown Uncoded 11/19/19 14:31 ANTIHISTAMINE Allergy Unknown Unknown Uncoded 11/19/19 14:31 nfa Allergy Unknown Unknown Uncoded 11/19/19 14:31 SALICYLATES Allergy Unknown TOLD NOT Uncoded 11/19/19 14:31 TO TAKE WITH SEIZURE MEDS <Harinder Nair PA-C - Last Filed: 11/19/19 16:22> Review of Systems Review of Systems: All systems reviewed & are unremarkable except as noted in HPI and below <Harinder Nair PA-C - Last Filed: 11/19/19 16:22> PMFSH Past Medical History Medical History: Medical History Anxiety History of CVA (cerebrovascular accident) Status post lobectomy of her right temporal lobe age 15 History of seizures From TBI and lobectomy a brain History of traumatic brain injury At 6 years old Migraine Peripheral vision loss Spastic hemiparesis of left nondominant side <Harinder Nair PA-C - Last Filed: 11/19/19 16:22> Surgical History Surgical History: Surgical History H/O lymph node biopsy History of colonoscopy History of dilation and curettage History of skin graft Left hand History of total hysterectomy History of tubal ligation Status post lobectomy of brain Right temporal lobectomy <Harinder Nair PA-C - Last Filed: 11/19/19 16:22> Social History Social History: Social Hi
[2019-11-19] MEDS: SODIUM CHLORIDE 0.9% IV 1,000 ML 999 ML IV CONT (13:16)
[2019-11-19] MEDS: LORAZEPAM INJ 2 MG/ML VIAL 1 MG IV PUSH (13:16)
[2019-11-19] MEDS: MECLIZINE HCL 25 MG TABLET PO (13:16)
[2019-11-19] MEDS: FAMOTIDINE 20 MG/2 ML VIAL IV PUSH (13:16)
[2019-11-19] MEDS: ONDANSETRON INJ 4 MG/2 ML VIAL IV PUSH (13:16)
[2019-11-19 13:52] LABS: Basophils Percent Auto 0.7 % (0.2-1.2); Eosinophils Percent Auto 0.5 % (0-4.4); Hematocrit 42.2 % (37.0-47.0); Hemoglobin 14.1 g/dL (12.0-15.0); Immature Granulocyte Absolute 0.03 K/mm3 (0.00-0.031); Immature Granulocyte Percent A 0.7 % (0-0.5); Lymphocytes Absolute Auto 1.14 K/mm3 (0.9-3.2); Mean Corpuscular HGB Conc 33.4 g/dl (32-36); Mean Corpuscular Hemoglobin 32.6 pg (26-34); Mean Corpuscular Volume 97.5 fl (80-100); Mean Platelet Volume 9.5 fl (7.4-10.4); Monocytes Absolute Auto 0.4 K/mm3 (0.1-0.6); Monocytes Percent Auto 8.7 % (2.6-8.5); Neutrophils Absolute Auto 2.6 K/mm3 (1.3-6.7); Neutrophils Percent Auto 62.4 % (45.5-73.1); Platelet Count Result 152 k/mm3 (150-375); Red Blood Count 4.33 M/mm3 (4.2-5.4); Red Cell Distribution Width 12.8 % (11.5-14.5); White Blood Count 4.2 K/mm3 (4.5-10.0)
[2019-11-19 13:55] LABS: Alanine Aminotransferase 25 U/L (4-35); Albumin Level 4.2 g/dL (3.5-5.1); Alkaline Phosphatase 59 U/L (38-126); Aspartate Amino Transferase 42 U/L (14-36); Bilirubin,Total 0.4 mg/dL (0.2-1.3); Blood Urea Nitrogen 7 mg/dL (7-17); Calcium 9.1 mg/dL (8.4-10.2); Carbon Dioxide 33 mmol/L (22-30); Chloride 99 mmol/L (98-107); Estimated Glomerular Filt Rate > 60; Glucose 84 mg/dL (65-105); Lipase 54 U/L (23-300); Potassium 3.6 mmol/L (3.4-5.0); Sodium 139 mmol/L (137-145)
[2019-11-19 14:00] LABS: Add Urine Microscopic? YES; Appearance Urine Clear (Clear); Bilirubin Urine Negative (Negative); Blood Urine 1+ (Negative); Color Urine Straw (Yellow); Glucose Urine UA Negative (Negative); Ketones Urine Trace mg/dL (Negative); Leukocyte Esterase Ur Negative LEU/UL (Negative); Mucus Urine Rare /lpf; Nitrate Urine Negative (Negative); Protein Urine Negative (Negative); RBC Urine 0-2 /hpf (0-2); Urobilinogen Urine Negative mg/dL (<2.0); WBC Urine 0-3 /hpf
[2019-11-19 15:01] VITALS: BP 99/36; PULSE 73; RESP 20; O2SAT 95
--- NOTE | 2019-11-19 15:04 | PC.NURSE ---
Pt was unable to ambulate with her walker. EDP made aware.
--- NOTE | 2019-11-19 16:09 | ECG_ITS ---
Measurements Intervals [place] Rate: 79 P: 59 HI: 147 QRS: -22 QRSD: 97 T: 74 QT: 373 QTc: 428 Interpretive Statements SINUS RHYTHM BORDERLINE ST-T WAVE ABNORMALITY- DIFFUSE LEADS BASELINE ARTIFACT- I, III, AVL BORDERLINE ECG Electronically Signed On 11-19-2019 16:23:53 CDT by Daniel Mercado D.O.
[2019-11-19 16:16] VITALS: BP 95/51; PULSE 70; RESP 20; O2SAT 96
--- NOTE | 2019-11-19 16:27 | PCCCNOTE ---
Pt in need for SNF/Fpc placement. Able to get pt admitted at [facility] (no bed avail at [facility]). Info fax [phone] to [facility]. Spoke with sister and pt and both OK with placement. Sister Shahnaz Benito [phone] will be able to transport pt to [facility]. Report to be given to [facility] at [phone] by ED nurse.
[2019-11-19 16:43] VITALS: BP 94/63; PULSE 71; RESP 20; TEMP 36.7; O2SAT 97
== END 2019-11-19 15:04 ==
PROVIDERS: Emergency Medicine Emergency Medical Services; Emergency Provider Emergency Medicine; PCP Nurse Practitioner Family
DX: G40.909 Epilepsy, unspecified, not intractable, without status epilepticus (principal); I69.398 Other sequelae of cerebral infarction; R26.9 Unspecified abnormalities of gait and mobility; I69.954 Hemiplegia and hemiparesis following unspecified cerebrovascular disease affecting left non-dominant side; G81.14 Spastic hemiplegia affecting left nondominant side; Z87.820 Personal history of traumatic brain injury; H54.7 Unspecified visual loss; G93.89 Other specified disorders of brain; R94.31 Abnormal electrocardiogram [ECG] [EKG]
CPT/HCPCS: 36415; 51701; 70450; 80053; 80164; 81001; 81025; 83690; 85025; 93005; 96361; 96374; 96375; 99284; A9270; J2060; J2405; J7030

== ENCOUNTER 2020-07-06 17:25 | Emergency (ER) | payer MEDICARE, MEDICAID, SELFPAY ==
--- NOTE | ~2020-07-06 | XR_ITS ---
EXAMINATION: XR ankle LT min 3V DATE: 07/06/2020 19:45 INDICATION: Left ankle pain post fall TECHNIQUE: Anteroposterior, oblique, mortise, and lateral views of the left ankle were obtained. COMPARISON: None. FINDINGS: Nondisplaced intra-articular fracture at the lateral base of the left fifth metatarsal. Alignment rem ains essentially anatomic. No other fractures identified. Joint spaces are normal. Soft tissue swelli ng about the lateral malleolus, mid and hindfoot. IMPRESSION: 1. Nondisplaced intra-articular fracture the lateral base of the left fifth metatarsal. Reviewed, dictated and finalized at location A. CUTTER IMPRESSION: 1. Nondisplaced intra-articular fracture the lateral base of the left fifth met atarsal.
[2020-07-06 17:28] VITALS: BP 141/75; PULSE 101; RESP 20; TEMP 36.3; O2SAT 100
[2020-07-06 19:27] VITALS: BP 139/72; PULSE 89; RESP 17; TEMP 36.9; O2SAT 100
--- NOTE | 2020-07-06 20:06 | PC.NURSE ---
Pt refusing crutches at this time. States that she has left sided weakness from a previous stroke and is unable to use them.
--- NOTE | 2020-07-06 20:12 | ED.GENADULT ---
HPI - General Adult General Chief complaint: Extremity Injury, Lower Stated complaint: foot & arm injury Time Seen by Provider: 07/06/20 19:24 Source: patient Mode of arrival: ambulatory Limitations: no limitations History of Present Illness HPI narrative: Patient presents with chief complaint of pain to the left foot that began approximately 45 minutes prior to arrival while patient was having one of her walking seizures. Patient states that she has had seizures since she was 6 years ago and she is closely monitored by her neurologist Dr. Vaughn. Patient states that due to unequal lower extremities and lower extremity decreased function she is has injured her left foot before. She denies knowingly everting or inverting her foot or falling. Patient denies any head injury or other areas of pain.. Related Data Home Medications Medication Instructions Recorded Confirmed Combivent Respimat 1 puff INHALATION HS 11/06/19 11/13/19 Vimpat 100 mg PO BID 11/06/19 11/13/19 Vimpat 200 mg PO BID 11/06/19 11/13/19 xrzmjjosix-wasgojpnfg-eex-cod 1 cap PO Q4H PRN 11/06/19 11/13/19 clorazepate dipotassium 7.5 mg PO BID 11/06/19 11/13/19 divalproex 1,000 mg PO TID 11/06/19 11/13/19 ergocalciferol (vitamin D2) 1,250 mcg PO WEEKLY 11/06/19 11/13/19 levetiracetam [Keppra] 1,000 mg PO BID 11/06/19 11/13/19 meclizine 25 mg PO TID 11/06/19 11/13/19 montelukast 10 mg PO DAILY 11/06/19 11/13/19 Allergies Allergy/AdvReac Type Severity Reaction Status Date / Time Barbiturates Allergy Unknown ? Verified 11/19/19 14:31 Hydantoins Allergy Unknown WBC Verified 11/19/19 14:31 DROPPED OUT meperidine Allergy Unknown DIZZY Verified 11/19/19 14:31 Penicillins Allergy Unknown ? Verified 11/19/19 14:31 phenytoin Allergy Unknown ???: Verified 11/19/19 14:31 ANTICONVULS Allergy Unknown Unknown Uncoded 11/19/19 14:31 ANTIHISTAMINE Allergy Unknown Unknown Uncoded 11/19/19 14:31 nfa Allergy Unknown Unknown Uncoded 11/19/19 14:31 SALICYLATES Allergy Unknown TOLD NOT Uncoded 11/19/19 14:31 TO TAKE WITH SEIZURE MEDS Review of Systems Review of Systems: Narrative: CONSTITUTIONAL: Denies fever, chills, or sweats. EYES: Denies visual changes, redness, or discharge. ENT: Denies rhinorrhea, congestion, sore throat, or otalgia. CARDIOVASCULAR: Denies chest pain, palpitations, or edema. RESPIRATORY: Denies cough or dyspnea. GASTROINTESTINAL: Denies abdominal pain, nausea, vomiting, or diarrhea. GENITOURINARY: Denies dysuria or hematuria. SKIN: Denies rash or itching. MUSCULOSKELETAL: Reports left ankle pain denies back pain, joint pain, or myalgia. NEUROLOGIC: Denies headache, numbness, dizziness, or weakness. PSYCHIATRIC: Denies anxiety or depression. [facility] Past Medical History Medical History (Updated 07/06/20 @ 20:18 by Sander Cox PA-C) Anxiety History of CVA (cerebrovascular accident) Status post lobectomy of her right temporal lobe age 15 History of seizures From TBI and lobectomy a brain History of traumatic brain injury At 6 years old Migraine Peripheral vision loss Spastic hemiparesis of left nondominant side Surgical History Surgical History H/O lymph node biopsy History of colonoscopy History of dilation and curettage History of skin graft Left hand History of total hysterectomy History of tubal ligation Status post lobectomy of brain Right temporal lobectomy Family History Family History Mother Acute myocardial infarction Grandparent Acute myocardial infarction Other Congestive heart failure Hypertension Ovarian cancer Social History Social History Social History: She walks using a rolling walker. She states that her sister is her durable power trademark attorney. She states that she does not want to be intubated but she will allow CPR.
[2020-07-06 20:22] VITALS: BP 135/91; PULSE 86; RESP 16; TEMP 36.8; O2SAT 100
== END 2020-07-06 20:32 | disposition home or self-care (01) ==
PROVIDERS: Emergency Provider Emergency Medicine; PCP Nurse Practitioner Family
DX: S92.355A Nondisplaced fracture of fifth metatarsal bone, left foot, initial encounter for closed fracture (principal); R56.9 Unspecified convulsions; G81.14 Spastic hemiplegia affecting left nondominant side; Z87.820 Personal history of traumatic brain injury; Z86.73 Personal history of transient ischemic attack (TIA), and cerebral infarction without residual deficits; Z77.22 Contact with and (suspected) exposure to environmental tobacco smoke (acute) (chronic); X58.XXXA Exposure to other specified factors, initial encounter
CPT/HCPCS: 73610; 99284

== ENCOUNTER 2020-08-12 10:41 | Emergency (ER) | payer MEDICARE, MEDICAID, SELFPAY ==
[2020-08-12 10:55] VITALS: BP 111/60; PULSE 85; RESP 14; TEMP 36.7; O2SAT 100
--- NOTE | 2020-08-12 12:58 | ED.GENADULT ---
HPI - General Adult General Chief complaint: Dental/Oral Stated complaint: jaw pain Time Seen by Provider: 08/12/20 12:06 Source: patient Mode of arrival: ambulatory Limitations: no limitations History of Present Illness HPI narrative: Patient is a 50-year-old female who presents with a few days duration of right sided upper dental pain radiating to the ear patient notes that she has been grinding her teeth but also has dental caries is in concern for infection patient denies fever chills difficulty swallowing or URI symptoms has not taken anything for her symptoms has not followed up with dentistry about this. Related Data Home Medications Medication Instructions Recorded Confirmed Combivent Respimat 1 puff INHALATION HS 11/06/19 11/13/19 Vimpat 100 mg PO BID 11/06/19 11/13/19 Vimpat 200 mg PO BID 11/06/19 11/13/19 atqrubzajz-jwlyneqtit-tir-cod 1 cap PO Q4H PRN 11/06/19 11/13/19 clorazepate dipotassium 7.5 mg PO BID 11/06/19 11/13/19 divalproex 1,000 mg PO TID 11/06/19 11/13/19 ergocalciferol (vitamin D2) 1,250 mcg PO WEEKLY 11/06/19 11/13/19 levetiracetam [Keppra] 1,000 mg PO BID 11/06/19 11/13/19 meclizine 25 mg PO TID 11/06/19 11/13/19 montelukast 10 mg PO DAILY 11/06/19 11/13/19 Allergies Allergy/AdvReac Type Severity Reaction Status Date / Time Barbiturates Allergy Unknown ? Verified 11/19/19 14:31 Hydantoins Allergy Unknown WBC Verified 11/19/19 14:31 DROPPED OUT meperidine Allergy Unknown DIZZY Verified 11/19/19 14:31 Penicillins Allergy Unknown ? Verified 11/19/19 14:31 phenytoin Allergy Unknown ???: Verified 11/19/19 14:31 ANTICONVULS Allergy Unknown Unknown Uncoded 11/19/19 14:31 ANTIHISTAMINE Allergy Unknown Unknown Uncoded 11/19/19 14:31 nfa Allergy Unknown Unknown Uncoded 11/19/19 14:31 SALICYLATES Allergy Unknown TOLD NOT Uncoded 11/19/19 14:31 TO TAKE WITH SEIZURE MEDS Review of Systems Review of Systems: All systems reviewed & are unremarkable except as noted in HPI and below PMFSH Past Medical History Medical History (Updated 08/12/20 @ 13:22 by Harinder Nair PA-C) Anxiety History of CVA (cerebrovascular accident) Status post lobectomy of her right temporal lobe age 15 History of seizures From TBI and lobectomy a brain History of traumatic brain injury At 6 years old Migraine Peripheral vision loss Spastic hemiparesis of left nondominant side Surgical History Surgical History H/O lymph node biopsy History of colonoscopy History of dilation and curettage History of skin graft Left hand History of total hysterectomy History of tubal ligation Status post lobectomy of brain Right temporal lobectomy Family History Family History Mother Acute myocardial infarction Grandparent Acute myocardial infarction Other Congestive heart failure Hypertension Ovarian cancer Social History Social History Social History: She walks using a rolling walker. She states that her sister is her durable power database modeler. She states that she does not want to be intubated but she will allow CPR. She lives home alone in her own apartment [place]. She tells me that she is receiving home health 3 times a week. She has 1 child. She is disabled. She is . She denies any alcohol tobacco marijuana or illicit drug use Smoking status: Never smoker Second hand tobacco smoke exposure: Yes Alcohol intake: never Substance use: never Substance use type: does not use Additional living arrangements comments: The patient lives alone in her apartment in [place] and has a private pharmacy assistant that comes to her house Sunday through Sunday for 3-1/2 hours a day. Additional occupation/education comments: Disabled Gender identity (if verbalized by the patient): Female Spiritual care
--- NOTE | 2020-08-12 13:04 | ED.DENTAL ---
HPI - Dental/Oral General Chief complaint: Dental/Oral Stated complaint: jaw pain Time Seen by Provider: 08/12/20 12:06 Source: patient Mode of arrival: ambulatory Limitations: no limitations Related Data Home Medications Medication Instructions Recorded Confirmed Combivent Respimat 1 puff INHALATION HS 11/06/19 11/13/19 Vimpat 100 mg PO BID 11/06/19 11/13/19 Vimpat 200 mg PO BID 11/06/19 11/13/19 bnmosyokpq-aeahbllvuo-upz-cod 1 cap PO Q4H PRN 11/06/19 11/13/19 clorazepate dipotassium 7.5 mg PO BID 11/06/19 11/13/19 divalproex 1,000 mg PO TID 11/06/19 11/13/19 ergocalciferol (vitamin D2) 1,250 mcg PO WEEKLY 11/06/19 11/13/19 levetiracetam [Keppra] 1,000 mg PO BID 11/06/19 11/13/19 meclizine 25 mg PO TID 11/06/19 11/13/19 montelukast 10 mg PO DAILY 11/06/19 11/13/19 Allergies Allergy/AdvReac Type Severity Reaction Status Date / Time Barbiturates Allergy Unknown ? Verified 11/19/19 14:31 Hydantoins Allergy Unknown WBC Verified 11/19/19 14:31 DROPPED OUT meperidine Allergy Unknown DIZZY Verified 11/19/19 14:31 Penicillins Allergy Unknown ? Verified 11/19/19 14:31 phenytoin Allergy Unknown ???: Verified 11/19/19 14:31 ANTICONVULS Allergy Unknown Unknown Uncoded 11/19/19 14:31 ANTIHISTAMINE Allergy Unknown Unknown Uncoded 11/19/19 14:31 nfa Allergy Unknown Unknown Uncoded 11/19/19 14:31 SALICYLATES Allergy Unknown TOLD NOT Uncoded 11/19/19 14:31 TO TAKE WITH SEIZURE MEDS [facility] Past Medical History Medical History (Updated 07/07/20 @ 00:00 by Background Daemon) Anxiety History of CVA (cerebrovascular accident) Status post lobectomy of her right temporal lobe age 15 History of seizures From TBI and lobectomy a brain History of traumatic brain injury At 6 years old Migraine Peripheral vision loss Spastic hemiparesis of left nondominant side Surgical History Surgical History H/O lymph node biopsy History of colonoscopy History of dilation and curettage History of skin graft Left hand History of total hysterectomy History of tubal ligation Status post lobectomy of brain Right temporal lobectomy Family History Family History Mother Acute myocardial infarction Grandparent Acute myocardial infarction Other Congestive heart failure Hypertension Ovarian cancer Social History Social History Social History: She walks using a rolling walker. She states that her sister is her durable power assistant county attorney. She states that she does not want to be intubated but she will allow CPR. She lives home alone in her own apartment [place]. She tells me that she is receiving home health 3 times a week. She has 1 child. She is disabled. She is . She denies any alcohol tobacco marijuana or illicit drug use Smoking status: Never smoker Second hand tobacco smoke exposure: Yes Alcohol intake: never Substance use: never Substance use type: does not use Additional living arrangements comments: The patient lives alone in her apartment in [place] and has a private human resources office assistant that comes to her house Sunday through Sunday for 3-1/2 hours a day. Additional occupation/education comments: Disabled Gender identity (if verbalized by the patient): Female Spiritual care concerns: No Course Vital Signs Vital signs: Vital Signs Temperature 98.0 F 08/12/20 10:55 Pulse Rate 85 08/12/20 10:55 Respiratory Rate 14 08/12/20 10:55 Blood Pressure 111/60 08/12/20 10:55 Pulse Oximetry 100 08/12/20 10:55 Temperature 98.0 F 08/12/20 10:55 Pulse Rate 85 08/12/20 10:55 Respiratory Rate 14 08/12/20 10:55 Blood Pressure 111/60 08/12/20 10:55 Pulse Oximetry 100 08/12/20 10:55 Discharge Plan Discharge Prescriptions: No Action levetiracetam [Keppra] 1,000 mg Ta
== END 2020-08-12 13:52 | disposition home or self-care (01) ==
PROVIDERS: Emergency Provider Emergency Medicine; PCP Nurse Practitioner Family
DX: K08.89 Other specified disorders of teeth and supporting structures (principal); F41.9 Anxiety disorder, unspecified; G40.909 Epilepsy, unspecified, not intractable, without status epilepticus
CPT/HCPCS: 99283

== ENCOUNTER 2021-05-13 12:15 | Emergency (ER) | payer OTHER, SELFPAY ==
--- NOTE | ~2021-05-13 | XR_ITS ---
XR chest 2V DATE: 05/13/2021 13:01 INDICATION: Cough, sore throat TECHNIQUE: AP and lateral views COMPARISON: 11/13/2019 2 view chest FINDINGS: Normal heart size. No hilar or mediastinal enlargement. No pulmonary infiltrate or consolid ation, pleural effusion or pulmonary vascular congestion or pneumothorax. There is mild levoscoliosis of the thoracic spine. IMPRESSION: No active cardiopulmonary disease Reviewed, dictated and finalized at location A. CH CHECKER
[2021-05-13 12:40] VITALS: BP 120/62; PULSE 97; RESP 14; TEMP 36.7; O2SAT 100
--- NOTE | 2021-05-13 12:56 | ED.GENADULT ---
HPI - General Adult General Chief complaint: Unspecified Stated complaint: swollen glands, trouble breathing Time Seen by Provider: 05/13/21 12:45 Source: patient Mode of arrival: ambulatory Limitations: no limitations History of Present Illness HPI narrative: Patient is a 50-year-old female complaining of cough, sore throat, swollen glands and shortness of breath that started today. Patient states that her cough is nonproductive. Patient denies any chest pain, abdominal pain, nausea, vomiting, diarrhea, fever or chills. Related Data Home Medications Medication Instructions Recorded Confirmed ergocalciferol (vitamin D2) 1,250 mcg PO WEEKLY 11/06/19 01/05/21 Allergies Allergy/AdvReac Type Severity Reaction Status Date / Time Barbiturates Allergy Unknown ? Verified 01/05/21 15:31 Hydantoins Allergy Unknown WBC Verified 01/05/21 15:31 DROPPED OUT meperidine Allergy Unknown DIZZY Verified 01/05/21 15:31 Penicillins Allergy Unknown ? Verified 01/05/21 15:31 phenytoin Allergy Unknown ???: Verified 01/05/21 15:31 ANTICONVULS Allergy Unknown Unknown Uncoded 01/05/21 15:31 ANTIHISTAMINE Allergy Unknown Unknown Uncoded 01/05/21 15:31 nfa Allergy Unknown Unknown Uncoded 01/05/21 15:31 SALICYLATES Allergy Unknown TOLD NOT Uncoded 01/05/21 15:31 TO TAKE WITH SEIZURE MEDS Review of Systems Review of Systems: All systems reviewed & are unremarkable except as noted in HPI and below Constitutional: Constitutional: Denies body ache(s), Denies chills, Denies excessive sweating, Denies fatigue, Denies fever(s), Denies headache(s), Denies lethargy, Denies malaise, Denies weakness and Denies weight loss Eyes: Eyes: Denies blurry vision, Denies change in vision and Denies loss of vision ENT: Denies dizziness, Denies ear discharge, Denies headache(s), Denies lip swelling, Denies epistaxis, Denies nasal congestion, Denies neck pain, Denies throat swelling and Denies tongue swelling Cardiovascular: Cardiovascular: Denies chest pain, Denies chest pain at rest, Denies chest pain with activity, Denies diaphoresis, Denies rapid heart rate, Denies edema, Denies irregular heart rhythm, Denies lightheadedness, Denies palpitations and Denies dyspnea on exertion Respiratory: Respiratory: Denies chest congestion, Denies hemoptysis and Denies dyspnea on exertion Gastrointestinal: Gastrointestinal: Denies abdominal pain, Denies melena, Denies hematochezia, Denies diarrhea, Denies nausea, Denies vomiting and Denies hematemesis Musculoskeletal: Musculoskeletal: Denies abnormal gait, Denies deformity, Denies joint swelling, Denies limited range of motion, Denies neck pain and Denies numbness Neurologic: Denies Abnormal speech present, Denies abnormal gait, Denies confusion, Denies dizziness, Denies headache(s), Denies focal weakness, Denies loss of vision, Denies numbness, Denies Other visual disturbances, Denies Sensory deficit (Neuro) and Denies weakness Psychiatric: Psychiatric: Denies confusion, Denies depression, Denies auditory hallucinations, Denies homicidal ideation and Denies suicidal ideation Endocrine: Endocrine: Denies cold intolerance, Denies excessive sweating, Denies fatigue, Denies heat intolerance and Denies palpitations Hematologic/Lymphatic: Hematologic/Lymphatic: Denies easy bleeding and Denies easy bruising Allergic/Immunologic: Allergic/Immunologic: Denies lip swelling, Denies throat swelling and Denies tongue swelling PMFSH Past Medical History Medical History (Updated 05/13/21 @ 15:33 by Tate Carr MD) Anxiety History of CVA (cerebrovascular accident) Status post lobectomy of her right temporal lobe age 15 History of seizures From TBI and lobectomy a brain History of traumatic brain injury At 6 years old Migraine Peripheral vision loss Spastic hemiparesis of left nondominant side Surgical History Surgical History H/O lymph n
[2021-05-13 13:39] LABS: Basophils Percent Auto 0.6 % (0.2-1.2); Eosinophils Absolute Auto 0.1 K/mm3 (0-0.3); Eosinophils Percent Auto 1.3 % (0-4.4); Hematocrit 40.5 % (37.0-47.0); Hemoglobin 13.9 g/dL (12.0-15.0); Immature Granulocyte Absolute 0.04 K/mm3 (0.00-0.031); Immature Granulocyte Percent A 0.6 % (0-0.5); Lymphocytes Absolute Auto 1.57 K/mm3 (0.9-3.2); Lymphocytes Percent Auto 22.1 % (18.3-44.2); Mean Corpuscular HGB Conc 34.3 g/dl (32-36); Mean Corpuscular Volume 93.3 fl (80-100); Mean Platelet Volume 9.3 fl (7.4-10.4); Monocytes Absolute Auto 0.5 K/mm3 (0.1-0.6); Monocytes Percent Auto 7.1 % (2.6-8.5); Neutrophils Absolute Auto 4.9 K/mm3 (1.3-6.7); Neutrophils Percent Auto 68.3 % (45.5-73.1); Platelet Count Result 197 k/mm3 (150-375); Red Blood Count 4.34 M/mm3 (4.2-5.4); Red Cell Distribution Width 12.6 % (11.5-14.5); White Blood Count 7.1 K/mm3 (4.5-10.0)
[2021-05-13 13:54] LABS: Anion Gap 9 mmol/L (8-16); Blood Urea Nitrogen 9 mg/dL (7-17); Calcium 9.8 mg/dL (8.4-10.2); Carbon Dioxide 32 mmol/L (22-30); Chloride 95 mmol/L (98-107); Estimated CRCL calculation 87 ml/min; Estimated Glomerular Filt Rate > 60; Glucose 118 mg/dL (65-110); Potassium 3.4 mmol/L (3.4-5.0); Sodium 136 mmol/L (137-145)
[2021-05-13 14:05] LABS: NT Pro B Type Natriuretic Pept 62 pg/mL (5-100); Troponin I < 0.012 ng/mL (0.000-0.034)
[2021-05-13 15:47] VITALS: BP 125/66; PULSE 90; RESP 16; O2SAT 100
== END 2021-05-13 15:48 | disposition home or self-care (01) ==
PROVIDERS: Emergency Provider Emergency Medicine; PCP Nurse Practitioner Family
DX: J02.8 Acute pharyngitis due to other specified organisms (principal); R59.9 Enlarged lymph nodes, unspecified; I69.954 Hemiplegia and hemiparesis following unspecified cerebrovascular disease affecting left non-dominant side; Q04.3 Other reduction deformities of brain; Z87.820 Personal history of traumatic brain injury
CPT/HCPCS: 36415; 71046; 80048; 83880; 84484; 85025; 87081; 87880; 99283

== ENCOUNTER 2022-03-06 11:52 | Emergency (ER) | payer MEDICARE, MEDICAID, SELFPAY ==
[2022-03-06] VITALS (22 sets, daily range): BP systolic 99–139; BP diastolic 56–85; PULSE 68–100; RESP 8–35; TEMP 36.4; O2SAT 77–100
--- NOTE | ~2022-03-06 | XR_ITS ---
EXAMINATION: XR chest 1V portable DATE: 03/06/2022 15:23 INDICATION: Syncope. TECHNIQUE: A single frontal view of the chest was obtained. COMPARISON: Chest 2 views 05/13/2021, chest CT 11/06/2019 FINDINGS: The chest demonstrates clear lungs without pneumonia, pleural effusion, or pneumothorax. Th e heart size is normal. IMPRESSION: 1. No acute cardiopulmonary disease. Reviewed, dictated and finalized at location A.
--- NOTE | 2022-03-06 11:59 | ECG_ITS ---
Measurements Intervals [place] Rate: 84 P: 50 [place]: 120 QRS: -36 QRSD: 99 T: 26 QT: 277 QTc: 328 Interpretive Statements SINUS RHYTHM LEFT AXIS DEVIATION DELAYED PRECORDIAL R/S TRANSITION BORDERLINE ST-T WAVE ABNORMALITY- DIFFUSE LEADS BORDERLINE ECG COMPARED TO ECG 11/19/2019 12:46:10 LEFT-AXIS DEVIATION NOW PRESENT Electronically Signed On 03-06-2022 12:43:23 CDT by Daniel Mercado D.O.
--- NOTE | 2022-03-06 12:21 | PC.NURSE ---
multiple attempts at IV access without success. another RN attempting
[2022-03-06 12:43] LABS: Eosinophils Absolute Auto 0.1 K/mm3 (0-0.3); Eosinophils Percent Auto 1.2 % (0-4.4); Hematocrit 43.5 % (37.0-47.0); Hemoglobin 14.7 g/dL (12.0-15.0); Immature Granulocyte Absolute 0.01 K/mm3 (0.00-0.031); Immature Granulocyte Percent A 0.2 % (0-0.5); Lymphocytes Absolute Auto 1.77 K/mm3 (0.9-3.2); Lymphocytes Percent Auto 42.3 % (18.3-44.2); Mean Corpuscular HGB Conc 33.8 g/dl (32-36); Mean Corpuscular Hemoglobin 31.5 pg (26-34); Mean Corpuscular Volume 93.3 fl (80-100); Mean Platelet Volume 9.2 fl (7.4-10.4); Monocytes Absolute Auto 0.4 K/mm3 (0.1-0.6); Monocytes Percent Auto 8.4 % (2.6-8.5); Neutrophils Percent Auto 46.9 % (45.5-73.1); Platelet Count Result 176 k/mm3 (150-375); Red Blood Count 4.66 M/mm3 (4.2-5.4); Red Cell Distribution Width 13.5 % (11.5-14.5); White Blood Count 4.2 K/mm3 (4.5-10.0)
[2022-03-06 12:55] LABS: Alanine Aminotransferase 15 U/L (6-35); Albumin Level 4.5 g/dL (3.5-5.1); Alkaline Phosphatase 52 U/L (38-126); Anion Gap 13 mmol/L (8-16); Aspartate Amino Transferase 24 U/L (14-36); Bilirubin,Total 0.6 mg/dL (0.2-1.3); Blood Urea Nitrogen 10 mg/dL (7-17); Calcium 9.6 mg/dL (8.4-10.2); Carbon Dioxide 28 mmol/L (22-30); Chloride 99 mmol/L (98-107); Estimated CRCL calculation 68 ml/min; Estimated Glomerular Filt Rate > 60; Glucose 95 mg/dL (65-110); Potassium 3.9 mmol/L (3.4-5.0); Sodium 140 mmol/L (137-145)
--- NOTE | 2022-03-06 13:03 | PC.NURSE ---
multiple interventions for pt. Claimed we lost her fitbit; found in bed with pt, placed on R wrist per pt.'s request and fitted very loosely per pt's request Needed to void, specimen needed, pt.unable to obtain clean catch due to condition, st. cath was done Depends found over pt.'s underpants; returned to same way per pt.'s request Repositioned on stretcher, linen straightened Bed alarm pad repositioned under pt. and reset Pt. updated on status, HOB positioned to pt.'s request
[2022-03-06 13:11] LABS: Appearance Urine Clear (Clear); Bilirubin Urine Negative (Negative); Color Urine Yellow (Yellow); Glucose Urine UA Negative (Negative); Ketones Urine Negative (Negative); Leukocyte Esterase Ur Negative LEU/UL (Negative); Nitrate Urine Negative (Negative); Protein Urine Negative (Negative); Specific Grav Ur 1.015 (1.001-1.035); Urobilinogen Urine 0.2 mg/dL (<2.0); pH Urine 7.5 (5.0-9.0)
[2022-03-06 13:13] LABS: Add Urine Microscopic? YES; Blood Urine Trace-Intact (Negative)
[2022-03-06 13:17] LABS: RBC Urine 0-2 /hpf (0-2)
[2022-03-06] MEDS: MECLIZINE HCL 12.5 MG TABLET PO (13:20)
[2022-03-06] MEDS: DIVALPROEX SODIUM DR 250 MG TABEC PO (13:20)
[2022-03-06] MEDS: CLORAZEPATE DIPOTASSIUM (*CRX) 3.75 MG TABLET 7.5 MG PO (13:20)
--- NOTE | 2022-03-06 15:57 | ED.DIZZY ---
HPI - Dizziness General Chief Complaint: Syncope Stated Complaint: syncopal Time Seen by Provider: 03/06/22 12:05 History of Present Illness HPI Narrative: Patient is a 51-year-old female who presents to the ER with dizziness. Reports its been occurring when she goes from sitting to standing. Not with turning her head or looking up and down. No pressure in ears. No nausea or vomiting. No syncope. She does endorse that she has had intermittent syncope since 2018 but did not occur today not sound like she came in. Patient has history of CVA and seizures. Patient has no numbness or weakness arm or leg. Patient not currently dizzy at this time. Patient also recently was treated for UTI and she is concerned maybe that has returned causing her symptoms. She is not currently having dysuria or urinary frequency/urgency. Related Data Home Medications Medication Instructions Recorded Confirmed ergocalciferol (vitamin D2) 1,250 1,250 mcg PO WEEKLY 11/06/19 10/18/21 mcg (50,000 unit) capsule dalfampridine 10 mg 10 mg PO Q12H 05/27/21 10/18/21 tablet,extended release,12 hr Allergies Allergy/AdvReac Type Severity Reaction Status Date / Time Barbiturates Allergy Unknown ? Verified 10/18/21 15:34 Hydantoins Allergy Unknown WBC Verified 10/18/21 15:34 DROPPED OUT meperidine Allergy Unknown DIZZY Verified 10/18/21 15:34 Penicillins Allergy Unknown ? Verified 10/18/21 15:34 phenytoin Allergy Unknown ???: Verified 10/18/21 15:34 ANTICONVULS Allergy Unknown Unknown Uncoded 10/18/21 15:34 ANTIHISTAMINE Allergy Unknown Unknown Uncoded 10/18/21 15:34 nfa Allergy Unknown Unknown Uncoded 10/18/21 15:34 SALICYLATES Allergy Unknown TOLD NOT Uncoded 10/18/21 15:34 TO TAKE WITH SEIZURE MEDS Review of Systems Review of Systems: All systems reviewed & are unremarkable except as noted in HPI and below Constitutional: Constitutional: Denies chills, Denies fatigue and Denies fever(s) ENT: Denies nasal congestion and Denies sore throat Cardiovascular: Cardiovascular: Denies chest pain, Denies rapid heart rate and Denies radiating jaw, neck or arm pain Respiratory: Respiratory: Denies cough and Denies dyspnea Gastrointestinal: Gastrointestinal: Denies abdominal pain, Denies nausea and Denies vomiting Neurologic: Reports dizziness, Denies syncope, Denies headache(s), Denies focal weakness and Denies numbness PMFSH Past Medical History Medical History (Updated 03/06/22 @ 15:59 by Javi Michael MD) Anxiety History of CVA (cerebrovascular accident) Status post lobectomy of her right temporal lobe age 15 History of seizures From TBI and lobectomy a brain History of traumatic brain injury At 6 years old Migraine Peripheral vision loss Spastic hemiparesis of left nondominant side Surgical History Surgical History H/O lymph node biopsy History of colonoscopy History of dilation and curettage History of skin graft Left hand History of total hysterectomy History of tubal ligation Status post lobectomy of brain Right temporal lobectomy Family History Family History Mother Acute myocardial infarction Grandparent Acute myocardial infarction Other Congestive heart failure Hypertension Ovarian cancer Social History Social History Social History: She walks using a rolling walker. She states that her sister is her durable power document review attorney. She states that she does not want to be intubated but she will allow CPR. She lives home alone in her own apartment [place]. She tells me that she is receiving home health 3 times a week. She has 1 child. She is disabled. She is . She denies any alcohol tobacco marijuana or illicit drug use Smoking status: Never smoker Second hand tobacco smoke exposure: Yes Alcohol intake: never
== END 2022-03-06 18:05 | disposition home or self-care (01) ==
PROVIDERS: Emergency Medicine; Emergency Provider Emergency Medicine; PCP Nurse Practitioner Family
DX: R42 Dizziness and giddiness (principal); G81.14 Spastic hemiplegia affecting left nondominant side; F41.9 Anxiety disorder, unspecified; G40.909 Epilepsy, unspecified, not intractable, without status epilepticus; Z86.73 Personal history of transient ischemic attack (TIA), and cerebral infarction without residual deficits
CPT/HCPCS: 36415; 51701; 71045; 80053; 81001; 81025; 85025; 93005; 99283; A9270

== ENCOUNTER 2022-10-03 10:35 | Outpatient (CLI) | payer MEDICARE, MEDICAID, SELFPAY ==
--- NOTE | 2022-10-03 13:18 | P.NEURO_ITS ---
Neurology EEG Report General Information Date of Study: 10/03/22 TEST Routine EEG DIAGNOSIS Unspecified convulsions CONDITION OF RECORDING Awake, drowsy, asleep EEG NUMBER [id number] CLINICAL HISTORY Patient reports she has had seizures all her life. She had a right temporal lobectomy done when she was 15. She continues to have small breakthrough seizures. EEG DESCRIPTION During the awake state with eyes closed the background consists of 8 Hz p osterior dominant rhythm which attenuates appropriately with eye opening. The recording is continuous. There is a well developed anterior-posterior gradient. No significant asymmetries of background activities are noted. With drowsiness there is waxing and waning of the dominant rhythm with eventual replacement by a mixture of beta, alpha, and theta activity. Patient does not enter stage II sleep. Occasional sharp waves were noted in the left temporal (T3) and right temporal (T6) regions (independent of each other). Photic stimulation did not elicit any abnormal photoparoxysmal response. No seizures were noted during the recording. IMPRESSION This is an abnormal routine EEG due to the presence of occasional, left and right temporal sharp waves. This is suggestive of decreased threshold to have seizure from a focal onset mechanism. Clinical correlation is recommended.
[2022-10-05 16:42] LABS: Levetiracetam Keppra 43.8 mcg/mL (6.0-46.0)
[2022-10-05 19:42] LABS: Lamotrigine Lamictal 10.3 mcg/mL (2.5-15.0)
== END 2022-10-03 10:36 | disposition home or self-care (01) ==
LOC: ANHNEURO 10:36
PROVIDERS: PCP Nurse Practitioner Family; Visit Provider Psychiatry & Neurology Neurology
DX: R56.9 Unspecified convulsions (principal); Z87.898 Personal history of other specified conditions; R94.131 Abnormal electromyogram [EMG]
CPT/HCPCS: 36415; 80175; 80177; 95816

== ENCOUNTER 2024-02-16 05:59 | Emergency (ER) | payer MEDICARE, MEDICAID, SELFPAY ==
[2024-02-16] VITALS (26 sets, daily range): BP systolic 103–151; BP diastolic 52–91; PULSE 76–96; RESP 12–19; TEMP 36.4; O2SAT 94–98
--- NOTE | ~2024-02-16 | CT_ITS ---
EXAMINATION: CT brain wo con DATE: 02/16/2024 07:41 INDICATION: Fall. TECHNIQUE: Computed tomography (CT) of the head was performed without intravenous contrast. The mA wa s adjusted according to patient size. Iterative reconstruction technique was employed. The dose-lengt h product was 605.33 mGy-cm. COMPARISON: Head CT 11/19/2019 FINDINGS: There is chronic encephalomalacia involving right temporal lobe and right insula. There are changes of right-sided craniotomy. There is no intracranial hemorrhage, acute infarction, or abnorma l intracranial mass lesion. There is ex vacuo dilatation of right lateral ventricle. The orbits are n ormal. The paranasal sinuses are clear. The mastoid air cells are normal. IMPRESSION: 1. Chronic encephalomalacia involving right temporal lobe and right insula. Reviewed, dictated and finalized at location A.
--- NOTE | ~2024-02-16 | XR_ITS ---
EXAMINATION: XR shoulder LT min 2V DATE: 02/16/2024 07:49 INDICATION: Left shoulder pain. Fall. TECHNIQUE: 4 views of left shoulder were obtained. COMPARISON: Left shoulder radiographs 11/06/2019 FINDINGS: Bone alignment is normal. No fracture. There is mild osteoarthritis of glenohumeral joint a nd acromioclavicular joint. IMPRESSION: 1. Mild polyarticular osteoarthritis. Reviewed, dictated and finalized at location A.
--- NOTE | ~2024-02-16 | CT_ITS ---
EXAMINATION: CT cervical spine wo con DATE: 02/16/2024 07:41 INDICATION: Head injury. Fall. TECHNIQUE: Computed tomography (CT) of the cervical spine was performed without intravenous contrast. Automated exposure control and iterative reconstruction technique were employed. The dose-length pro duct was 259.94 mGy-cm. COMPARISON: CT cervical spine 11/06/2019 FINDINGS: There is a 15 x 19 mm right high internal jugular chain lymph node. There are changes of bi lateral craniotomies. There is mild kyphosis of lower cervical spine. There is 4 degrees dextrocurvat ure of cervicothoracic spine. Vertebral body heights are normal. There is mildly decreased disc heigh t at C4-C5 and moderately decreased disc height at C5-C6 and C6-7 C7. The following disc levels are s pecifically discussed: C2-C3: There is mild bilateral uncovertebral joint osteoarthritis. There is severe bilateral facet bobby int osteoarthritis. There is mild left neural foraminal stenosis. There is no central canal stenosis. C3-C4: There is moderate right and mild left uncovertebral joint osteoarthritis. There is severe righ t and mild left facet joint osteoarthritis. There is mild right neural foraminal stenosis. There is n o central canal stenosis. C4-C5: There is mild bilateral uncovertebral joint osteoarthritis. There is mild left facet joint ost eoarthritis. There is no neural foraminal stenosis. There is no central canal stenosis. C5-C6: There is severe bilateral uncovertebral joint osteoarthritis. There is mild bilateral facet bobby int osteoarthritis. There is mild right and moderate left neural foraminal stenosis. There is mild ce ntral canal stenosis. C6-C7: There is mild bilateral uncovertebral joint osteoarthritis. There is mild right and moderate l eft facet joint osteoarthritis. There is mild left neural foraminal stenosis. There is mild central c anal stenosis. C7-T1: There is no uncovertebral joint osteoarthritis. There is severe bilateral facet joint osteoart hritis. There is mild bilateral neural foraminal stenosis. There is no central canal stenosis. IMPRESSION: 1. No fracture 2. Moderate cervical spondylosis. Reviewed, dictated and finalized at location A.
--- NOTE | ~2024-02-16 | XR_ITS ---
EXAMINATION: XR chest 1V DATE: 02/16/2024 07:49 INDICATION: Cough and shortness of breath. TECHNIQUE: A single frontal view of the chest was obtained. COMPARISON: Chest single view 03/06/2022 FINDINGS: There is no pneumonia, pleural effusion, or pneumothorax. The heart size is normal. IMPRESSION: 1. No acute cardiopulmonary disease. Reviewed, dictated and finalized at location A.
--- NOTE | 2024-02-16 07:17 | ED.SYNCOPE ---
HPI - Syncope General Chief Complaint: Extremity Injury, Upper Stated Complaint: L shoulder pain before and after fall Time Seen by Provider: 02/16/24 07:02 History of Present Illness HPI narrative: 53 year old female with a history of CVA, seizure disorder presenting after a fall. States that she got up in the middle of the night and as she stood up she felt lightheaded. She has left-sided paralysis from a stroke at 15 years old. States that she was unable to catch herself so she fell back onto her left side. She struck the left side of her head as well as her shoulder. She does not think that she lost consciousness. States that she has had a cough lately. No chest pain or abdominal pain. She currently feels a bit nauseated. Related Data Home Medications Medication Instructions Recorded Confirmed ergocalciferol (vitamin D2) 1,250 1,250 mcg PO WEEKLY 11/06/19 10/18/21 mcg (50,000 unit) capsule ipratropium 20 mcg-albuterol 100 1 puff inhalation Q4H 07/13/22 mcg/actuation mist for inhalation (Combivent Respimat) montelukast 10 mg tablet 10 mg PO QHS 07/13/22 Allergies Allergy/AdvReac Type Severity Reaction Status Date / Time Barbiturates Allergy Unknown ? Verified 07/13/22 09:24 Hydantoins Allergy Unknown WBC Verified 07/13/22 09:24 DROPPED OUT meperidine Allergy Unknown DIZZY Verified 07/13/22 09:24 Penicillins Allergy Unknown ? Verified 07/13/22 09:24 phenytoin Allergy Unknown ???: Verified 07/13/22 09:24 ANTICONVULS Allergy Unknown Unknown Uncoded 07/13/22 09:24 ANTIHISTAMINE Allergy Unknown Unknown Uncoded 07/13/22 09:24 nfa Allergy Unknown Unknown Uncoded 07/13/22 09:24 SALICYLATES Allergy Unknown TOLD NOT Uncoded 07/13/22 09:24 TO TAKE WITH SEIZURE MEDS Review of Systems Review of Systems: All systems reviewed & are unremarkable except as noted in HPI and below PMFSH Past Medical History Medical History (Updated 02/16/24 @ 12:02 by Mónica Yarbrough MD) Anxiety History of CVA (cerebrovascular accident) Status post lobectomy of her right temporal lobe age 15 History of seizures From TBI and lobectomy a brain History of traumatic brain injury At 6 years old Migraine Peripheral vision loss Spastic hemiparesis of left nondominant side Surgical History Surgical History H/O lymph node biopsy History of colonoscopy History of dilation and curettage History of skin graft Left hand History of total hysterectomy History of tubal ligation Status post lobectomy of brain Right temporal lobectomy Family History Family History Mother Acute myocardial infarction Grandparent Acute myocardial infarction Other Congestive heart failure Hypertension Ovarian cancer Social History Social History Social History: She walks using a rolling walker. She states that her sister is her durable power property management supervisor. She states that she does not want to be intubated but she will allow CPR. She lives home alone in her own apartment [place]. She tells me that she is receiving home health 3 times a week. She has 1 child. She is disabled. She is . She denies any alcohol tobacco marijuana or illicit drug use Smoking status: Never smoker Second hand tobacco smoke exposure: Yes Alcohol intake: never Substance use: never Substance use type: does not use Lack of Transportation: YES Lack of Food: Often True Current Housing: I Have Housing Concerned About Future Housing: No Difficulty Paying Gas/Electric Bills: No Difficulty Paying for Meds: No Currently Unemployed: No Education: High School Diploma/GED Difficulty w/ Childcare or Family Care: No Additional living arrangements comments: The patient lives alone in her apartment in [place] and has a private
--- NOTE | 2024-02-16 07:21 | ECG_ITS ---
Test Date: 2024-02-16 07:57:08 Measurements Intervals [place] Rate: 85 P: 57 SD: 136 QRS: -22 QRSD: 105 T: 85 QT: 346 QTc: 412 Interpretive Statements SINUS RHYTHM BORDERLINE LEFT AXIS DEVIATION [QRS AXIS < -20] NONSPECIFIC ST AND T WAVE ABNORMALITY No previous ECG available for comparison Electronically Signed On 02-16-2024 10:37:02 CDT by Edelmira Cano M.D.
[2024-02-16] MEDS: ONDANSETRON INJ 4 MG/2 ML VIAL IV PUSH (08:15)
[2024-02-16] MEDS: SODIUM CHLORIDE 0.9% IV 1,000 ML 999 ML IV CONT (08:15)
[2024-02-16 08:20] LABS: Basophils Absolute Auto 0.1 K/mm3 (0.0-0.1); Basophils Percent Auto 0.9 % (0.2-1.2); Eosinophils Absolute Auto 0.1 K/mm3 (0-0.3); Eosinophils Percent Auto 2.5 % (0-4.4); Hematocrit 44.9 % (37.0-47.0); Hemoglobin 14.8 g/dL (12.0-15.0); Immature Granulocyte Absolute 0.02 K/mm3 (0.00-0.031); Immature Granulocyte Percent A 0.4 % (0-0.5); Lymphocytes Absolute Auto 1.62 K/mm3 (0.9-3.2); Lymphocytes Percent Auto 28.5 % (18.3-44.2); Mean Corpuscular Hemoglobin 30.6 pg (26-34); Mean Platelet Volume 8.8 fl (7.4-10.4); Monocytes Absolute Auto 0.5 K/mm3 (0.1-0.6); Monocytes Percent Auto 8.3 % (2.6-8.5); Neutrophils Absolute Auto 3.4 K/mm3 (1.3-6.7); Neutrophils Percent Auto 59.4 % (45.5-73.1); Platelet Count Result 208 k/mm3 (150-375); Red Blood Count 4.83 M/mm3 (4.2-5.4); Red Cell Distribution Width 13.6 % (11.5-14.5); White Blood Count 5.7 K/mm3 (4.5-10.0)
[2024-02-16 08:27] LABS: Add Urine Microscopic? YES; Appearance Urine Clear (Clear); Bacteria Urine None Seen /hpf; Bilirubin Urine Negative (Negative); Blood Urine Non-Hemolyzed Trace (Negative); Color Urine Yellow (Yellow); Glucose Urine UA Negative (Negative); Ketones Urine Negative (Negative); Leukocyte Esterase Ur 2+ LEU/UL (Negative); Nitrate Urine Negative (Negative); Non Pathogenic Casts 0-2; Protein Urine Negative (Negative); RBC Urine 0-2 /hpf (0-2); Specific Grav Ur 1.006 (1.001-1.035); Squamous Epithelial Cell Urine None Seen /hpf (Few); Urobilinogen Urine 0.2 mg/dL (<2.0); WBC Urine 21-50 /hpf (0-3); pH Urine 6.5 (5.0-9.0)
[2024-02-16] MEDS: levETIRAcetam 250 MG TABLET 1000 MG PO (08:31)
[2024-02-16] MEDS: DIVALPROEX SODIUM DR 250 MG TABEC PO ×2 (08:31→12:17)
[2024-02-16] MEDS: lamoTRIgine 100 MG TABLET PO (08:32)
[2024-02-16] MEDS: MECLIZINE HCL 12.5 MG TABLET PO (08:32)
[2024-02-16 08:34] LABS: Alanine Aminotransferase 22 U/L (6-35); Albumin Level 4.4 g/dL (3.5-5.1); Alkaline Phosphatase 68 U/L (38-126); Anion Gap 9 mmol/L (4-12); Aspartate Amino Transferase 33 U/L (14-36); Bilirubin,Total 0.4 mg/dL (0.2-1.3); Blood Urea Nitrogen 8 mg/dL (7-17); Calcium 9.3 mg/dL (8.4-10.2); Carbon Dioxide 30 mmol/L (22-30); Chloride 102 mmol/L (98-107); Estimated CRCL calculation 96 ml/min; Estimated Glomerular Filt Rate > 60; Glucose 98 mg/dL (65-110); Lipase 103 U/L (23-300); Potassium 3.9 mmol/L (3.4-5.0); Sodium 141 mmol/L (137-145)
[2024-02-16 08:51] LABS: Troponin I < 0.012 ng/mL (0.000-0.034)
[2024-02-16 08:55] LABS: Influenza A QL RT-PCR Negative (Negative); Influenza B QL RT-PCR Negative (Negative); RSV RNA, RT-PCR Negative (Negative); SARS-CoV-2 RNA PCR Negative (Negative)
[2024-02-16] MEDS: CLORAZEPATE DIPOTASSIUM (*CRX) 7.5 MG TABLET PO (09:08)
[2024-02-16] MEDS: CEPHALEXIN 500 MG CAPSULE PO (09:21)
== END 2024-02-16 12:33 | disposition home or self-care (01) ==
PROVIDERS: Emergency Provider Emergency Medicine; PCP Nurse Practitioner Family
DX: S49.92XA Unspecified injury of left shoulder and upper arm, initial encounter (principal); N39.0 Urinary tract infection, site not specified; Z20.822 Contact with and (suspected) exposure to COVID-19; I69.354 Hemiplegia and hemiparesis following cerebral infarction affecting left non-dominant side; Z87.820 Personal history of traumatic brain injury; Z77.22 Contact with and (suspected) exposure to environmental tobacco smoke (acute) (chronic); Z90.89 Acquired absence of other organs; Z90.710 Acquired absence of both cervix and uterus; Z79.1 Long term (current) use of non-steroidal anti-inflammatories (NSAID); Z79.899 Other long term (current) drug therapy; M19.012 Primary osteoarthritis, left shoulder; M47.812 Spondylosis without myelopathy or radiculopathy, cervical region; R94.31 Abnormal electrocardiogram [ECG] [EKG]; W18.39XA Other fall on same level, initial encounter
CPT/HCPCS: 36415; 70450; 71045; 72125; 73030; 80053; 81001; 83690; 84484; 85025; 87086; 87637; 93005; 96361; 96374; 99284; A9270; J2405; J7030